=== PATIENT | male | born 1960 | race Caucasian/White ===

== ENCOUNTER 2022-06-07 07:30 | Outpatient (RCR) | payer OTHER, SELFPAY | END 2022-07-12 14:33 | disposition home or self-care (01) | PROVIDERS: PCP Surgery; Visit Provider Surgery | DX: M25.551 Pain in right hip (principal); Z51.89 Encounter for other specified aftercare | CPT/HCPCS: 97110; 97140; 97162 ==

== ENCOUNTER 2024-02-19 15:20 | Emergency (ER) | payer OTHER, SELFPAY ==
[2024-02-19 15:25] VITALS: BP 142/85; PULSE 92; RESP 20; TEMP 36.6; O2SAT 98; BMI 44.1
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
--- OUTSIDE RECORDS SUMMARY | 2024-02-19 16:08 | XMS_ITS | Referral Summary ---
Author Name Unknown Organization [facility] Address [address] [place] [address] Care Team Providers Care Deaf/Hard Of Hearing Specialist Name Role Phone Elsewhere, Pcp Primary Care Provider Unavailabl e Source Comments Patient records contain information from all sites at [facility]. For routine questions regarding patient records, call [phone] during business hours, M-F 8:00 AM - 5:00 PM Central Time. Record requests for emergency care only can be directed to [phone] at any time.[facility] Allergies Active Allergy Reactions Criticality Noted Date Comments Apollo Cespedes (Reselect Reaction) 01/21/2007 rash Medications Medication Sig Dispensed Refills Start Date End Date Status rosuvastatin (CRESTOR) 5 mg tablet Take 5 mg by mouth. 10/26/2022 Active naproxen (NAPROSYN) 500 mg tablet Take 500 mg by mouth every 12 (twelve) hours as needed. 01/02/2023 Active metoprolol tartrate (LOPRESSOR) 25 mg tablet Take 25 mg by mouth 2 (two) times a day. 03/06/2023 Active lisinopriL (PRINIVIL,ZESTRIL) 30 mg tablet Take 15 mg by mouth. 12/28/2022 Active HYDROcodone-acetaminoph en (NORCO) 5-325 mg per tablet Take by mouth every 6 (six) hours as needed. 01/19/2023 Active dilTIAZem CD (CARDIZEM CD/CARTIA XT) 120 mg 24 hr capsule Take 120 mg by mouth. 10/26/2022 Active cranberry fruit (cranberry) 450 mg tablet Take by mouth. 12/19/2022 Active apixaban (ELIQUIS) 5 mg tablet Take 5 mg by mouth. 10/26/2022 Active Social History Tobacco Use Types Packs/Day Years Used Date Smoking Tobacco: Every Day Cigarettes Passive Smoke Exposure: Current Tobacco Cessation:Ready to Q uit: Not Asked; Counseling Given: Not Answered Alcohol Use Standard Drinks/Week Comments Defer 0 (1 standard drink = 0.6 oz pur e alcohol) Nutrition Answer Date Recorded Nutrition: EVOO Fat Source Unknown 12/07 Nutrition: Servings of Fruits/Vegetables per Day Not on file 12/07/2020 Dental Answer Date Recorded Dental: Regular Dentist Unknown 12/08/19 21 Sex and Gender Information Value Date Recorded Sex Assigned at Not on file Gender Identity Not on file Sexual Orientation Not on file Last Filed Vital Signs Vital Sign Reading Time Taken Comments Blood Pressure 167/110 05/04/2023 3:00 PM CDT Pulse 85 05/04/2023 3:05 PM CDT Temperature 36.6 ??C (97.9 ??F) 05/04/2023 3:00 PM CD T Respiratory Rate 22 05/04/2023 3:05 PM CDT Oxygen Saturation 96% 05/04/2023 3:05 PM CDT Inhaled Oxygen Concentration - - Weight 135 kg (297 lb 9.9 oz) 05/04/2023 1:51 PM CDT Height - - Body Mass Index - - Plan of Treatment Not on file Procedures Procedure Name Priority Date/Time Associated Diagnosis Comments EXTI POTASSIUM, S/P Routine 01/02/2023 9 :12 AM CDT EXTI CREATININE WITH EGFR, S/P Routine 12/18/2022 3:38 PM CDT EXTI LIPID PANEL, S Routine 10/26/2022 1 1:20 AM PAGE DESIGNER EXTI BASIC METABOLIC PANEL, S/P Routine 10/26/2022 11:20 AM PAGE DESIGNER from Last 3 Months or Most Recently Relevant to Health Maintenance Care Teams Deaf/Hard Of Hearing Specialist Relationship Specialty Start Date End Date Elsewhere, Pcp PCP - General Internal Medicine 05/04/23
--- OUTSIDE RECORDS SUMMARY | 2024-02-19 16:08 | XMS_ITS | Clinical Summary ---
Author Name Unknown Organization [facility] Address [address] [place] [address] Care Team Providers Care Space Buyer Name Role Phone Elsewhere, Pcp Primary Care Provider Unavailabl e Source Comments Patient records contain information from all sites at [facility]. For routine questions regarding patient records, call [phone] during business hours, M-F 8:00 AM - 5:00 PM Central Time. Record requests for emergency care only can be directed to [phone] at any time.[facility] Allergies Active Allergy Reactions Criticality Noted Date [...] Date Recorded Dental: Regular Dentist Unknown 12/08/19 Sex and Gender Information Value Date Recorded [...] Mass Index - - Plan of Treatment Health Maintenance Due Date Last Done Comments CT Colonography 1960 Cologuard 1960 Colonoscopy 1960 Colorectal Cancer Screening 1960 FIT 1960 HIV Screening 1960 Hepatitis C Screening 1960 Tobacco Cessation counseling 1960 Depression Screening (Annual PHQ-2) 10/08/2023 Sodium Level 10/26/2023 10/26/2022, 12/10/2020, 07/20/2020, Additional history exists Creatinine Level (Kidney Fun ction Test) 12/19/2023 12/18/2022, 10/26/2022, 09/15/2022, Additional history exists Potassium Level 01/03/2024 01/02/2023, 12/06, 12/04/2022, Additional history exists Fasting Glucose for Diabetes Screening 10/26/2025 10/26/2022, 09/27/2021, 07/20/2020, Additional history exists Lipid (Cholesterol) Screening 10/26/2027, 09/27/2021, 07/20/2020, Additional history exists DTaP,Tdap,and Td Vaccines (3 - Td or Tdap) 05/17/2028 05/17/2018, 02/09/2006 Zoster Vaccines Completed 09/19/2018, 05/17/2018 Pneumococcal vaccine (0-64 years) Completed 022, 01/07/2009 COVID-19 Vaccine Completed 08/14/2023, 03/2022, 08/30/2021, Additional history exists Influenza Vaccine Completed 08/14/2023, , 08/30/2021, Additional history exists Procedures Procedure Name Priority Date/Time Associated Diagnosis Comments EXTI POTASSIUM, S/P Routine 01/02/2023 9 :12 AM CDT EXTI CREATININE WITH EGFR, S/P Routine 12/18/2022 3:38 PM CDT EXTI LIPID PANEL, S Routine 10/26/2022 1 1:20 AM FRONT OFFICE DEVELOPER EXTI BASIC METABOLIC PANEL, S/P Routine 10/26/2022 11:20 AM FRONT OFFICE DEVELOPER from Last 3 Months or Most Recently Relevant to Health Maintenance Care Teams Space Buyer Relationship Specialty Start Date End Date Elsewhere, Pcp PCP - General Internal Medicine 05/04/23
--- OUTSIDE RECORDS SUMMARY | 2024-02-19 16:09 | XMS_ITS | Clinical Summary ---
Author Name Unknown Organization [facility] Address [place], [place] [address] Care Team Providers Care Land Examiner Name Role Phone Davian Vargas MD Primary Care Provider [phone] Allergies Active Allergy Reactions Criticality Noted Date Comments Codeine Hives 01/21/2007 Soap Erythema 12/05/2010 ?? Allergy to some types of soap and detergents- Hypoallergenic linens needed Patient unsure that this is an allergy 05/18/23 Medications Medication Sig Dispensed Refills Start Date End Date Status metoprolol tartrate (LOPRESSOR) 25 mg tabletIndications:Per sistent atrial fibrillation (HC) Take 1 Tablet (25 mg) by mouth two times daily. 180 Tablet 12/03/2023 Active Ventolin HFA 90 mcg/actuation inhalerIndications:Ex acerbation of asthma, unspecified asthma severity, unspecified whether persistent INHALE 1 TO 2 PUFFS BY MOUTH EVERY 4 HOURS NEEDED FOR SHORTNESS OF BREATH OR WHEEZING 18 g 1 12/23/2023 Active lisinopriL (PRINIVIL; ZESTRIL) 30 mg tabletIndications:Ess ential hypertension Take 1 Tablet (30 mg) by mouth once daily in the evening. 90 Tablet 3 01/11/2024 Active apixaban (ELIQUIS) 5 mg tabletIndications:Atr ial fibrillation, unspecified type (HC) Take 1 Tablet (5 mg) by mouth two times daily. 60 Tablet 11 01/11/2024 Active dilTIAZem CD (CARDIZEM CD) 120 mg extended release 24 hr capsuleIndications:At rial fibrillation, unspecified type (HC) Take 1 Capsule (120 mg) by mouth once daily. 90 Capsule 3 01/11/2024 Active rosuvastatin (CRESTOR) 10 mg tabletIndications:Mix ed hyperlipidemia Take 1 Tablet (10 mg) by mouth at bedtime. 90 Tablet 3 01/14/2024 Active Active Problems Problem Noted Date Diagnosed Date PVCs (premature ventricular contractions) 2017 Sleep apnea 07/16/2013 Overview: Mild - has never used CPAP Adenomatous colon polyp 01/08/2012 Overview: Colonoscopy 12/2011 polyps repeat in 3 years Colonoscopy 11/2015 polyp repeat in 5 years Colonoscopy 04/2022 large TA, repeat in 3 years Atrial fibrillation 09/20/2010 Overview: Converted after Tikosyn 12/2010 [facility]. Obesity, unspecified 09/08/2010 Unspecified essential hypertension 01/20/2009 Mixed hyperlipidemia 01/20/2009 Coronary artery disease 01/09/2009 Overview: Angiogram 01/12/2009 mild disease Unspecified asthma(493.90) 01/21/2007 Overview: Uses albuterol rarely Resolved Problems Problem Noted Date Diagnosed Date Resolved Date Persistent atrial fibrillation 02/19/2018 10/26/2022 Cholelithiases 10/02/2012 09/27/2021 Overview: Noted incidentally on CT scan; patient not informed. 10/02/2012. Patient advised 12/16/2012 Prediabetes 07/22/2012 10/26/2022 Overview: Referred to CDE. 07/22/2012 detention (current) use of anticoagulants 09/20/2010 07/20/2011 Overview: INR Goal Range: 2.0 - 3.0 Lipoma of other skin and subcutaneous tissue 0 09/27/2021 Overview: Right upper back: 3x4 cm. 05/02/2010 Small L4-5 Herniation with Right Leg Weakness 02/25/20 09 10/26/2022 Overview: Right leg numb, but no pain. 07/22/2012 Atrial fibrillation 01/06/2009 02/29/20 10 Overview: NORMAL SINUS RHYTHM per Holter. Displacement of lumbar inter vertebral disc without myelopathy 03/16/2008 02/24/2009 Thoracic or lumbosacral neur itis or radiculitis, unspecified 03/16/2008 09/27/2021 Encounters Date Type Department Care Team Description 01/24/2024 9:30 AM CDT Orders Only [facility] [address] [place] [address] Lab, [place] [facility] 01/24/2024 Travel 01/22/2024 8:00 AM CDT Office Visit [facility] [address] [address] Aurelia Nobles NP Heart Problem (Persistent atrial fibrillation (HC)); Primary MD (Davian Vargas MD/) 01/22/2024 Travel 01/14/2024 Orders Only [facility] [address] [place] [address] Davian Vargas MD <No scans attached> 01/11/2024 2:25 PM CDT Office Visit [facility] [address] [place] [address] Davian Vargas MD Physical (63 yr old male) 01/11/2024 Travel 01/07/2024 9:00 AM CDT Orders Only [facility] [address] [place] [address] 1 scan: (1-Ord) ECHO TTE COMPLETE WO CONTRAST ([id number]) 01/07/2024 Travel 12/25/2023 7:30 AM CDT Nurse/Clinic Staff Only [facility] 111 [facility] [address] [place] [address] 12/22/2023 Refill [facility] [address] [place] [address] Guy Han MD Refill Request (Ventolin Hfa) 12/20/2023 Refill [facility] [place] [address] [place] [id number] Davian Vargsa MD Refill Request (Lisinopril) 12/03/2023 Refill [facility] [address] [place] [address] Liat Jose MD Refill Request from Last 3 Months Immunizations Name Administration Dates Next Due COVID-19 Vaccine Spikevax (M oderna 50mcg/0.5mL) 12YO+ [id number] Formula PF 08/14/2023 COVID-19 vaccine (Pfizer-Bio NTech 30mcg/0.3mL) 12YO+ ASHLEY-SUCROSE PFMDV 03/13/2022 Influenza, IIV3 (Age >=3 years) 07/16/20 13,07/11/2012,07/20/2011,2009,08/10/2008,07/08/2007 Influenza, IIV4 08/14/2023,,08/30/2021,2019,07/07/2019,07/28/2018,08/08/2016,1 Pneumococcal Conj 20-valent (Prevnar 20) 03/13/2022 Pneumococcal Poly,23-Valent (Pneumovax) 01/07/2009 Td (Age >=7 Years) 05/17/2018 Tdap 02/09/2006 Zoster (Shingrix-RZV, recombinant) 09/19/2018, Family History Medical History Relation Name Comments Heart Disease Brother 1 Joey Higuera had [place] at 40's Heart Disease Brother 2 Carter Cardiac Irregu larity Hypertension Brother 2 Carter Diabetes Father Kalen Heart Disease Father Kalen Hypertension Father Kalen from heart attack, had x 2 heart surgeries Obesity Father Kalen Stroke Father Kalen Heart Disease Mother Yarelis Jasso Hypertension Mother Yarelis Jasso from heart attack at 53 yo, Relation Name Status Comments Brother 1 Joey Higuera (Age 40) [place] Brother 2 Carter Alive Dwarf; [place]. Father Kalen (Age 67) Mother Yarelis Jasso (Age 53) bedri dden: in her sleep Social History Tobacco Use Types Packs/Day Years Used Date Smoking Tobacco: Never Smokeless Tobacco: Never Tobacco Cessation:Counseling Given: Yes Alcohol Use Standard Drinks/Week Comments Yes 0 (1 standard drink = 0.6 oz pur e alcohol) on weekends about a 6 pack PHQ-2 Answer Date Recorded PHQ-2 TOTAL SCORE 0 01/11/2024 Social Connections Answer Date Recorded Frequency of Communication with Friends and Fami ly 0 01/11/2024 Financial Resource Strain Answer Date R ecorded Difficulty of Paying Living Expenses 3 01/11/2024 Difficulty of Paying Living Expenses Not on file 01/11/2024 Food Insecurity Answer Date Recorded Worried About Running Out of Food in the Last Ye ar 1 01/11/2024 Transportation Needs Answer Date Record ed Lack of Transportation (Medical) 1 01/11/2024 Housing Stability Answer Date Recorded Unable to Pay for Housing in the Last Year 1 01/11/2024 Sex and Gender Information Value Date Recorded Sex Assigned at Not on file Gender Identity Not on file Sexual Orientation Not on file Obstetrics History Last Filed Vital Signs Vital Sign Reading Time Taken Comments Blood Pressure 130/84 01/22/2024 8:01 AM CDT Pulse 72 01/22/2024 8:01 AM CDT Temperature 36.6 ??C (97.9 ??F) 07/16/2023 1:28 PM CD T Respiratory Rate 18 07/16/2023 1:28 PM CDT Oxygen Saturation 96% 01/22/2024 8:01 AM CDT Inhaled Oxygen Concentration - - Weight 134.7 kg (297 lb) 01/22/2024 8:01 AM CDT Height 167.6 cm (5' 6) 01/22/2024 8:01 AM CDT Body Mass Index 47.94 01/22/2024 8:01 AM CDT Plan of Treatment Upcoming Encounters Date Type Department Care Team (Late st Contact Info) Description 06/03/2024 8:00 AM CDT Office Visit [facility] [address] [place] [address] [place] [address] Aurelia Nobles NP [address] [place] [address] Health Maintenance Due Date Last Done Comments Influenza for age 50-64 06/08/2024 08/14/20, 06/08/2022, 08/30/2021, Additional history exists Depression screening for age 12+ 01/10/2025 01/11/2024, 11/21/2022, 11/20/2022, Additional history exists BMI (ht and wt on same day) for age 18+ 01/21/2025 01/22/2024, 01/11/2024, 09/25/2023, Additional history exists Colonoscopy through age 75 04/25/202504/25, 04/25/2022, 04/25/2022, Additional history exists Tetanus booster 05/17/2028 05/17/2018, 02/09/2006 Lipids for age 45-75 01/10/2029 01/11/2024, 10/26/2022, 09/27/2021, Additional history exists Tdap Completed 02/09/2006 Hepatitis C screening for ag e 18-79 Completed 05/17/2018 Zoster (shingles) series for age 50+ Completed 09/19/2018, 05/17/2018 Pneumococcal series for age 6-64 Completed 03/13/20, 01/07/2009 HIV for age 15-65 Completed 10/26/2022 COVID-19 vaccine series Completed 08/14/20, 03/13/2022, 08/30/2021, Additional history exists Medical Devices Implanted Type Area Planning Engineer Device Identifier Shelf Expiration Date Model / Serial / Lot [id number] one Matrix 1cc Morehouse Dbf Putty Dbm Implanted:Qty: 1 on 05/21/2023 by Arlene Mccall MBChB at [facility] N/A: Spine Med[employer]onic Spine/Ortho 01/25/2025 [id number] / [id number] / Sarah Spacer Tc 6 Deg Lg 9mm Implanted:Qty: 1 on 05/21/2023 by Arlene Mccall MBChB at [facility] N/A: Spine 11/30/2027 [id number] / / [id number] Description:SARAH SPACER TC 6 DEG LG 9MM Screw Cerv Ant 3.5x17mm Zevo Variable Slf Drilling - [id number] Implanted:Qty: 4 on 05/21/2023 by Arlene Mccall MBChB at [facility] N/A: Spine Medtronic Spine/Ortho [id number] / / Plate Zevo 21mm 1 Lvl Implanted:Qty: 1 on 05/21/2023 by Arlene Mccall MBChB at [facility] N/A: Spine [id number] / / Description:PLATE ZEVO 21MM 1 LVL Procedures Procedure Name Priority Date/Time Associated Diagnosis Comments TSH WITH REFLEX Routine 01/24/2024 9:47 AM CDT Paroxysmal atrial fibrillation (HC) AST (SGOT) Routine 01/24/2024 9:47 AM CDT Paroxysmal atrial fibrillation (HC) ALT (SGPT) Routine 01/24/2024 9:47 AM CDT Paroxysmal atrial fibrillation (HC) HEMOGLOBIN A1C SCREENING Routine 01/11/2024 3:15 PM CDT Prediabetes BASIC METABOLIC PANEL Routine 01/11/2024 3:15 PM CDT Unspecified essential hypertension PSA TOTAL SCREEN Routine 01/11/2024 3:15 PM CDT Screening for prostate cancer LIPID PANEL Routine 01/11/2024 3:15 PM CDT Mixed hyperlipidemia ECHO TTE COMPLETE WO CONTRAST Routine 01/07/2024 10:58 AM CDT Paroxysmal atrial fibrillation (HC) EXTENDED HOLTER Routine 12/25/2023 12:00 AM CDT Paroxysmal atrial fibrillation (HC) LC HIV-1/O/2, 4TH GENERATION Routine 10/26/2022 11:20 AM BUSINESS CONSULT Screening for HIV (human immunodeficiency virus) COLONOSCOPY SCREENING Routine 04/25/2022 7:35 AM CDT History of colon polyps ANTI HCV Routine 05/17/2018 9:04 AM CDT Need for hepatitis C screening test from Last 3 Months or Most Recently Relevant to Health Maintenance Results * TSH WITH REFLEX (01/24/2024 9:47 AM CDT) TSH 1.80 0.27 - 4.20 uIU/mL 01/24/2024 5:41 PM CDT [facility] Blood BLOOD SPECIMEN / Unknown Venipuncture / Unknown 01/24/2024 9:47 AM CDT 01/24/2024 9:49 AM CDT Narrative [facility] - 01/24/2024 5:41 PM CDT In Adults, TSH values between 5.00 and 10.00 uIU/ml do not necessarily indicate the presence of Hypothyroidism. Correlation with clinical findings such as presence of goiter and/or Thyroperoxidase (TPO) Antibody may be helpful. For more information please refer to HARINI 2004; 291: 228-238. Aurelia Nobles NP CHEMISTRY Performing Organization Address City/[facility]/ZIP Co de Phone Number [facility] [address] [place] [address], * ALT (SGPT) (01/24/2024 9:47 AM CDT) ALT (SGPT) 29 10 - 50 IU/L 01/24/2024 5:41 PM CDT [facility] Blood BLOOD SPECIMEN / Unknown Venipuncture / Unknown 01/24/2024 9:47 AM CDT 01/24/2024 9:49 AM CDT Aurelia Nobles DATA BASE ADMINISTRATOR CHEMISTRY [facility] [address] [place] [address], [place] * AST (SGOT) (01/24/2024 9:47 AM CDT) Pathologist [facility] AST (SGOT) 23 10 - 50 IU/L 01/24/2024 5:41 PM CDT [facility] Blood BLOOD SPECIMEN / Unknown Venipuncture / Unknown 01/24/2024 9:47 AM CDT 01/24/2024 9:49 AM CDT Aurelia Nobles NP CHEMISTRY Performing Organization Address [facility] Co de Phone Number [facility] [address] [place] [address], * HEMOGLOBIN A1C SCREENING (01/11/2024 3:15 PM CDT) [facility] HEMOGLOBIN A1C SCREENING 6.0 <=6.4 % 01/11/2024 9:52 PM CDT [facility] Blood BLOOD SPECIMEN / Unknown Venipuncture / Unknown 01/11/2024 3:15 PM CDT 01/11/2024 3:15 PM CDT Narrative [facility] - 01/11/2024 9:52 PM CDT ? (<5.7%) ?Normal ? (5.7% to 6.4%) ? Indicates prediabetes ? (>=6.5%) ? Confirms diabetes Falsely low levels may be seen with: Recent Transfusion, Recent Significant Blood Loss, Hemolytic Diseases, or Falsely elevated levels may be seen with: Untreated Anemias, Splenectomy Davian Vargas MD CHEMISTRY Performing Organization Address [facility] Co de Phone Number [facility] [address] [place] [address], * LIPID PANEL (01/11/2024 3:15 PM CDT) [facility] CHOLESTEROL,TOTAL 171 100 - 199 mg/dL 01/11/2024 10:17 PM CDT [facility] Comment: Cholesterol, Total Reference Ranges Desirable <200 mg/dL Borderline 200-239 mg/dL High >=240 mg/dL TRIGLYCERIDES 140 <150 mg/dL 01/11/2024 10:17 PM CDT [facility] HDL CHOLESTEROL 42 >40 mg/dL 10:17 PM CDT [facility] NON-HDL CHOLESTEROL 129 <145 mg/dl 01/11/2024 10:17 PM CDT [facility] CHOL/HDL RATIO 4.07 <4.50 01/11/2024 10:17 PM CDT [facility] LDL CHOLESTEROL 101 <=130 mg/dL 01/11/2024 10:17 PM CDT [facility] VLDL CHOLESTEROL 28 <=30 mg/dL 01/11/2024 10:17 PM CDT [facility] PROVIDER ORDERED STATUS RANDOM 01/11/2024 10:17 PM CDT [facility] Blood BLOOD SPECIMEN / Unknown Venipuncture / Unknown 01/11/2024 3:15 PM CDT 01/11/2024 3:15 PM CDT Davian Vargas MD CHEMISTRY [facility] [address] [place] [address], * (ABNORMAL) BASIC METABOLIC PANEL (01/11/2024 3:15 PM CDT) SODIUM 139 136 - 145 mmol/L 01/11/2024 10:17 PM CDT [facility] POTASSIUM 4.3 3.5 - 5.1 mmol/L 01/11/2024 10:17 PM CDT [facility] CHLORIDE 103 98 - 107 mmol/L 01/11/2024 10:17 PM CDT [facility] CO2,TOTAL 25 22 - 29 mmol/L 01/11/2024 10:17 PM CDT [facility] ANION GAP 11 5 - 18 01/11/2024 10:17 PM CDT [facility] GLUCOSE 101(H) 70 - 99 mg/dL 01/11/2024 10:17 PM CDT [facility] CALCIUM 8.8 8.8 - 10.2 mg/dL 01/11/2024 10:17 PM CDT [facility] BUN 16 8 - 23 mg/dL 01/11/2024 10:17 PM CDT [facility] CREATININE 0.88 0.70 - 1.20 mg/dL 01/11/2024 10:17 PM CDT [facility] BUN/CREAT RATIO 18 10 - 20 10:17 PM CDT [facility] eGFR >90 >90 mL/min/1.7 3m2 01/11/2024 10:17 PM CDT [facility] Comment:As of 2021, eG FR is calculated by the CKD-EPI creatinine equation without race adjustment. ??eGFR can be influenced by muscle mass, exercise, and diet. ??The reported eGFR is an estimation only and is only applicable if the renal function is stable. Blood BLOOD SPECIMEN / Unknown Venipuncture / Unknown 01/11/2024 3:15 PM CDT 01/11/2024 3:15 PM CDT Davian Vargas MD CHEMISTRY [facility] [address] [place] [address], * PSA TOTAL SCREEN (01/11/2024 3:15 PM CDT) PSA TOTAL (SCREEN) 0.92 <4.00 ng/mL 01/11/2024 10:17 PM CDT [facility] Blood BLOOD SPECIMEN / Unknown Venipuncture / Unknown 01/11/2024 3:15 PM CDT 01/11/2024 3:15 PM CDT Narrative [facility] - 01/11/2024 10:17 PM CDT The test method changed on 04/03/2023. If this test has been used for serial monitoring, rebaselining is recommended. Rebaselining consists of 2 measurements, collected 3-6 weeks apart. The [employer] Elecsys total PSA assay is an electrochemiluminescence immunoassay ECLIA performed on the [employer] Thang e immunoassay analyzers. Values obtained with different assay methods may be different and cannot be used interchangeably. Davian Vargas MD LABORATORY [facility] [address] [place] [address], * ECHO TTE COMPLETE WO CONTRAST (01/07/2024 10:58 AM CDT) AORTIC VALVE MEAN PG 3 mmHg PEAK TR VELOCITY 1.6 m/s LVEDD 5.3 cm EJECTION FRACTION 50 - 55% Anatomical Region Laterality Modality Ultrasound 01/07/2024 9:09 AM CDT Narrative 01/07/2024 11:48 AM CDT ECHOCARDIOGRAM FLACO FERNANDO ? Accession#: ?? [id number] : ?1960 63 years Study Date: ?? 01/07/2024 9:09:45 AM Gender: M ?BP: ? 112/68 mmHg Height: 170.00 cm ?BSA: ?2.37 m? ? ? Weight: 132.00 kg ?Tech: ? MBW ? Referring MD: LIAT JOSE Site: ? [facility] Reading Location: Mobile-OP Patient Location: Outpatient. Procedure: 2D, Color Doppler and Spectral Doppler. Indication for study: Paroxysmal A fib Cardiac Rhythm: Atrial fibrillation.Study quality: Technically limited. Final Impressions: 1. Technically limited exam. 2. Atrial fibrillation : rates in 60's. 3. Normal LV size, borderline wall thickness, low normal global systolic function with an estimated EF of 50 - 55%. 4. Severely enlarged left atrium. 5. Right ventricular cavity size is normal, global systolic RV function is borderline reduced. 6. 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 Chamber Sizes and Function Normal left ventricular size, borderline wall thickness, low normal global systolic function with an estimated EF of 50 - 55%. Left atrial size is severely enlarged. Right ventricular cavity size is normal, global systolic RV function is borderline reduced. The right atrium is severely enlarged. Right atrial area is 21 cm? ? ?. The pulmonary artery is not well visualized. The sinus of Valsalva is dilated. The ascending aorta is normal sized. Valves, RV Pressures and Diastolic Function The aortic valve is normal in structure and trileaflet, no stenosis and no regurgitation. The mitral valve is normal in structure, trace mitral regurgitation. Mitral annular calcification is present. Indeterminate pattern of LV diastolic filling. The tricuspid valve is normal in structure. Tricuspid regurgitation is mild regurgitation. The tricuspid regurgitant velocity is 1.6 m/s, the estimated right ventricular systolic pressure is 10 mmHg plus right atrial pressure. The pulmonic valve is not well visualized. Trace pulmonary regurgitation. Masses, Effusion, Shunts There is no pericardial effusion. The inferior vena cava is normal sized, respiratory size variation greater than 50%. No left to right shunting was detected by limited color flow Doppler interrogation of the interatrial septum. MEASUREMENTS AND CALCULATIONS 2-D Measurements and LV Function: LVID (d) 5.3 cm LV FS% (2D) ?? 26 % LVID (s) 3.9 cm LVOT diameter 2.4 cm IVS (d) ??1.2 cm HR ?68 bpm LVPW (d) 0.8 cm LA Vol index ??38 ml/m2 Ao Sinus 4.0 cm RA area ? 21 cm? ? ? Asc Ao ?? 3.3 cm RV Max 4C (d) 3.9 cm LA ? 5.4 cm Diastology: Mitral ?Tissue Doppler E Peak 0.9 m/s ??e', Septum ? 0.10 m/s DT ? 145 msec e', Lateral ?0.10 m/s ?E/e' Average ?? 8.99 Aortic Valve: Vmax ? 1.2 m/s ??CUAUHTEMOC (V) ?? 3.11 cm? ? ? VTI ?0.24 m ?? CUAUHTEMOC (I) ?? 2.81 cm? ? ? LVOT V max ? 0.9 m/s ??Max PG ?6 mmHg LVOT VTI ? 0.15 m ?? Mean PG ?? 3 mmHg SV ? 66 ml ?Dim Index 0.64 SV index ? 28 ml/m? ? ? CO ?4.5 l/min AV Ejection Time 0.26 sec CI ?1.9 l/min/m? ? ? AV Flow Rate ? 251 ml/s Mitral Valve: MVA ? 5.2 cm? ? ? MV P 1/2 ??42 msec MV Mean G 1 mmHg MV VTI ?0.26 m Tricuspid Valve and estimated PA pressures: TR Vmax 1.6 m/s TAPSE 1.6 cm TR maxG 10 mmHg . This study was interpreted by an [facility] accredited facility. CC: Davian Vargas. ??Final ?? Procedure Note Alondra Khan MD - 01/07/2024 ECHOCARDIOGRAM FLACO FERNANDO : 1960 63 years Study Date: 01/07/2024 9:09:45 AM Gender: M BP: 112/68 mmHg Height: 170.00 cm BSA: 2.37 m? ? ? Weight: 132.00 kg Tech: DELON Referring MD: LIAT JOSE Site: [facility] Reading Location: Mobile-OP Patient Location: Outpatient. Procedure: 2D, Color Doppler and Spectral Doppler. Indication for study: Paroxysmal A fib Cardiac Rhythm: Atrial fibrillation.Study quality: Technically limited. Final Impressions: 1. Technically limited exam. 2. Atrial fibrillation : rates in 60's. 3. Normal LV size, borderline wall thickness, low normal global systolicfunction with an estimated EF of 50 - 55%. 4. Severely enlarged left atrium. 5. Right ventricular cavity size is normal, global systolic RV functionis borderline reduced. 6. 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 Chamber Sizes and Function Normal left ventricular size, borderline wall thickness, low normal globalsystolic function with an estimated EF of 50 - 55%. Left atrial size isseverely enlarged. Right ventricular cavity size is normal, globalsystolic RV function is borderline reduced. The right atrium is severelyenlarged. Right atrial area is 21 cm? ? ?. The pulmonary artery is not wellvisualized. The sinus of Valsalva is dilated. The ascending aorta isnormal sized. Valves, RV Pressures and Diastolic Function The aortic valve is normal in structure and trileaflet, no stenosis and noregurgitation. The mitral valve is normal in structure, trace mitralregurgitation. Mitral annular calcification is present. Indeterminatepattern of LV diastolic filling. The tricuspid valve is normal instructure. Tricuspid regurgitation is mild regurgitation. The tricuspidregurgitant velocity is 1.6 m/s, the estimated right ventricular systolicpressure is 10 mmHg plus right atrial pressure. The pulmonic valve is notwell visualized. Trace pulmonary regurgitation. Masses, Effusion, Shunts There is no pericardial effusion. The inferior vena cava is normal sized,respiratory size variation greater than 50%. No left to right shunting wasdetected by limited color flow Doppler interrogation of the interatrialseptum. MEASUREMENTS AND CALCULATIONS 2-D Measurements and LV Function: LVID (d) 5.3 cm LV FS% (2D) 26 % LVID (s) 3.9 cm LVOT diameter 2.4 cm IVS (d) 1.2 cm HR 68 bpm LVPW (d) 0.8 cm LA Vol index 38 ml/m2 Ao Sinus 4.0 cm RA area 21 cm? ? ? Asc Ao 3.3 cm RV Max 4C (d) 3.9 cm LA 5.4 cm Diastology: Mitral Tissue Doppler E Peak 0.9 m/s e', Septum 0.10 m/s DT 145 msec e', Lateral 0.10 m/s E/e' Average 8.99 Aortic Valve: Vmax 1.2 m/s CUAUHTEMOC (V) 3.11 cm? ? ? VTI 0.24 m CUAUHTEMOC (I) 2.81 cm? ? ? LVOT V max 0.9 m/s Max PG 6 mmHg LVOT VTI 0.15 m Mean PG 3 mmHg SV 66 ml Dim Index 0.64 SV index 28 ml/m? ? ? CO 4.5 l/min AV Ejection Time 0.26 sec CI 1.9 l/min/m? ? ? AV Flow Rate 251 ml/s Mitral Valve: MVA 5.2 cm? ? ? MV P 1/2 42 msec MV Mean G 1 mmHg MV VTI 0.26 m Tricuspid Valve and estimated PA pressures: TR Vmax 1.6 m/s TAPSE 1.6 cm TR maxG 10 mmHg . This study was interpreted by an [facility] accredited facility. CC: Davian Vargas. Final Liat Jose MD ECHO ORD * ZIO PATCH XT - weekly to monthly symptoms. (12/25/2023 12:00 AM CDT) Liat Jose MD CARDIAC SERVICES ORD * LC HIV-1/O/2, 4TH GENERATION (10/26/2022 11:20 AM BUSINESS CONSULT) HIV Scr 4th Gen Non Reactive Non Reactive 10/28/2022 1:10 PM BUSINESS CONSULT [facility] ([facility]) Comment: HIV Negative HIV-1/HIV-2 antibodies and HIV-1 p24 antigen were NOT detected. There is no laboratory evidence of HIV infection. Blood BLOOD SPECIMEN / Unknown Venipuncture / Unknown 10/26/2022 11:20 AM BUSINESS CONSULT 10/26/2022 11:22 AM BUSINESS CONSULT Narrative [facility] ([facility]) - 10/28/2022 1:10 PM BUSINESS CONSULT Performed at: ??01 - [facility] [place], [place], [place] ??[id number] Cathode Ray Tube Assembler: Christiano Bowers MD, Phone: ??[phone] Davian Vargas MD LABORATORY [facility] (CET) [facility] [place] [address], * COLONOSCOPY (04/25/2022 7:45 AM CDT) 04/25/2022 7:45 AM CDT Narrative Transcriptions Shaan Quintero MD - 04/25/2022 8:59 AM CDT Patient Name: Flaco Fernando Procedure Date: 04/25/2022 Gender: Male Date of : 1960 Admit Type: Outpatient Procedure: Colonoscopy Proceduralist: Shaan Quintero MD , Roxie Woodall RN(Nurse) Referring MD: Davian Vargas Indications/Pre-Op Diagnosis: High risk colon cancer surveillance:Personal history of multiple (3 or more) adenomas,Last colonoscopy: December 2015 Medications: Fentanyl 100 micrograms IV, Midazolam 4 mgIV, The level of sedation administered wasmoderate Procedure Description: The patient had risks, benefits and alternatives explained to andgave informed consent. The patient had a stable cardiopulmonary status and judged an adequate candidate for conscious sedation. The Colonoscope was passed through the anus and advanced to thececum, identified by appendiceal orifice and ileocecal valve. Thecolonoscopy was performed without difficulty. The patient tolerated the procedure well. The quality of the bowel preparation was good. The ileocecal valve, appendiceal orifice, and rectum were photographed. Complications: No immediate complications. Estimated Blood Loss & Specimen: Estimated blood loss: none. Specimen collected - Yes and sent to Laboratory Findings: The perianal and digital rectal examinations were normal. A 3 mm polyp was found in the ascending colon. The polyp was sessile. The polyp was removed with a cold snare. Resection and retrieval were complete. A 25 mm polyp was found in the sigmoid colon at 45-40 cm. The polypwas pedunculated. The polyp was removed with a hot snare. Resection and retrieval were complete. To prevent bleeding after the polypectomy,one hemostatic clip was successfully placed (MR conditional). Clip pss delivery professional: [employer]. There was no bleeding during, or atthe end, of the procedure. Multiple small and large-mouthed diverticula were found in thesigmoid colon and descending colon. There was narrowing of the colon in association with the diverticular opening. The colon (entire examined portion) was mildly redundant. The exam was otherwise without abnormality on direct and retroflexion views. Impressions/Post-Op Diagnosis: - One 3 mm polyp in the ascending colon, removed with a cold snare. Resected and retrieved. - One 25 mm polyp in the sigmoid colon, removed with a hot snare. Resected and retrieved. Clip (MR conditional) was placed. Clip pss delivery professional: Massillon Avansera. - Moderate diverticulosis in the sigmoid colon and in the descending colon. There was narrowing of the colon in association with the diverticular opening. - Redundant colon. - The examination was otherwise normal on direct and retroflexionviews. Recommendation: - Patient has a contact number available for emergencies. The signsand symptoms of potential delayed complications were discussed with the patient. Return to normal activities tomorrow. Written discharge instructions were provided to the patient. - Resume previous diet. - Continue present medications. - Await pathology results. - Repeat colonoscopy in 3 years for surveillance. - Avoid heavy lifting greater than 30 lbs., asprin/ nonsteroidal medicines, exercise and strenuous activity for 2 weeks. Moderate Sedation: Moderate (conscious) sedation was administered by the endoscopy nurse and supervised by the endoscopist. The following parameters were monitored: oxygen saturation, heart rate, respiratory rate, blood pressure, adequacy of pulmonary ventilation and reponse to care. Please refer to the patient's medical record flowsheets and nursing notes for moderate sedation details. Total physician intraservice time was 46 minutes. Shaan Quintero MD 04/25/2022 8:59:06 AM This report has been signed electronically. Note Initiated On: 04/25/2022 7:45 AM Procedure Code(s): --- Professional --- 91243, Colonoscopy, flexible; with removalof tumor(s), polyp(s), or other lesion(s) bysnare technique Diagnosis Code(s): --- Professional --- Z86.010, Personal history of colonicpolyps D12.2, Benign neoplasm of ascending colon D12.5, Benign neoplasm of sigmoid colon K57.30, Diverticulosis of large intestine without perforation or abscess withoutbleeding Q43.8, Other specified congenitalmalformations of intestine CPT copyright 2020 [employer]. All rights reserved. The codes documented in this report are preliminary and upon reinsurance claims analyst reviewmay be revised to meet current compliance requirements. Scope In: 8:07:16 AM Scope Withdrawal Time 0 hours 30 minutes 44 seconds Scope Out: 8:49:20 AM Shaan Quintero MD PROCEDURE ORD * ANTI HCV [59656.2] (05/17/2018 9:04 AM CDT) HEPATITIS C ANTIBODY Non-React ezio Non-React ezio 05/17/2018 1:58 PM CDT [facility] Comment:Antibodies to HCV no t detected; does not exclude the possibility of exposure to HCV. Blood BLOOD SPECIMEN / Unknown Venipuncture / Unknown 05/17/2018 9:04 AM CDT 05/17/2018 9:04 AM CDT Davian Vargas MD SEND OUTS [facility] [address] [place] [address], from Last 3 Months or Most Recently Relevant to Health Maintenance Advance Directives * Full Code (Latest Code Status on File) Date Activated Date Inactivated Comments 05/21/2023 11:52 AM 05/22/2023 3:07 PM Question Answer Comments Code Status Discussion: Unable to Assess Preferences, Provider to review later * Full Code Date Activated Date Inactivated Comments 01/19/2023 6:12 AM 01/19/2023 12:09 PM Question Answer Comments Code Status Discussion: Not Discussed * Full Code Date Activated Date Inactivated Comments 12/04/2022 8:50 AM 12/04/2022 9:09 PM Question Answer Comments Code Status Discussion: Reviewed Preferences * Full Code Date Activated Date Inactivated Comments 11/20/2022 7:51 AM 11/20/2022 12:07 PM Question Answer Comments Code Status Discussion: Other * Full Code Date Activated Date Inactivated Comments 12/12/2010 10:44 AM 12/15/2010 6:35 PM Care Teams Land Examiner Relationship Specialty Start Date End Date Davian Vargas MD [address] [place] [address] PCP - General Family Practice 07/16/13
--- OUTSIDE RECORDS SUMMARY | 2024-02-19 16:09 | XMS_ITS ---
Author Name Unknown Organization [facility] Address [address] [place] [address] Care Team Providers Care Patient Care Manager Name Role Phone Unavailable Unavailable Unavailable Surgery Details Not on file Complications Check Surgery Details section. Procedure Estimated Blood Loss Check Surgery Details section. Procedure Findings Check Surgery Details section. Procedure Specimens Taken Check Surgery Details section.
--- OUTSIDE RECORDS SUMMARY | 2024-02-19 16:09 | XMS_ITS | Data Portability ---
Author Name Unknown Address [address] [place] [address] Phone [phone] Organization [facility] Address [address] [place] [address] Care Team Providers Care Bindery Cutter Operator Name Role Phone KAYKAY GUDELIA Primary Care Provider [phone] Assessment No assessment recorded. Plan of Treatment Reminders Order Date Submit Date Provider Last Modified By Organization Details Last Modified Time Details Appointments None recorded. Lab urinalysis, dipstick 2022 023 sonia [facility], [address], [place], [address], 3 15:03:49 Referral None recorded. Procedures None recorded. Surgeries extra corporeal shock wave lithotripsy (SURG) 2022 023 [email or web address] Not available 3 09:53:17 Imaging XR, kidney + ureter + bladder 2022 024 [facility] , [address], [place], [address], 4 03:02:32 Medication Orders None recorded. Patient TargetsNo targets recorded. Patient InstructionsNo instructions recorded. Reason for Referral None Reported. Results Created Date Observation Date Name Description Value Unit Range Abnormal Flag LastModifiedBy Organization Detail LastModifiedTime 12/22/19 23 12/21/2022 urina lysis , dipst ick pH-Status 5.5 Not Available [facility] [address], [place], [address], 12/21/2022 15:03:22 12/22/19 23 12/21/2022 urina lysis , dipst ick Blood-Status Small Not Available [facility] [address], [place], [address], 12/21/2022 15:03:22 12/20/19 23 11/21/2022 CT, urogr am No observ ation record ed. [email or web address] Not Available 12/19/2022 15:22:51 12/22/19 23 12/21/2022 XR, kidne y + urete r + bladd er EXAM: XR, KIDNEY + URETER + BLADDE R LOCATI ON: [facility] DATE/T VERN: 2022, 2:30 PM INDICA TION: Calcul us of kidney . COMPAR ATTILA: None. IMPRES LAMONTE: 9 mm stone projec ting within the inferi or left kidney . No defini te right- sided stones . No defini te distal ureter al stones or bladde r stones . Nonobs tructe d bowel gas patter n. This report was electr onical ly interp reted by: Guy bartlett MD on 2022 at 16:28 [facility] [address], [place], [address], 12/25/2022 18:04:54 02/09/20 23 02/07/2023 XR, kidne y + urete r + bladd er No observ ation record ed. [email or web address] [facility] [address] [facility] [address], [place], [address], 02/08/2023 09:04:47 Result Notes Documentation Provider Name and Address Organization Details Recorded Time Xr, Kidney + Ureter + Bladder : EXAM: XR, KIDNEY + URETER + BLADDER LOCATION: [facility] DATE/TIME: 12/21/2022, 2:30 PM INDICATION: Calculus of kidney. COMPARISON: None. IMPRESSION: 9 mm stone projecting within the inferior left kidney. No definite right-sided stones. No definite distal ureteral stones or bladder stones. Nonobstructed bowel gas pattern. This report was electronically interpreted by: Guy French MD on 12/21/2022 at 16:28 Abhinav Hammond MD [address] [place] [address],[address], [address], [facility] 12/25/2022 18:04:54 Problems Name Status Onset Date Resolution Date Notes Provider Name and Address Organization Details Recorded Time Microscopic hematuria Active 12/22/19 23 Abhinav Hammond MD [address] [place] [address],[address], [address], [facility] 12/21/2022 16:07:08 Kidney stone Active 12/22/19 23 Abhinav Hammond MD [address] [place] [address],[address], [address], [facility] 12/21/2022 16:09:47 Problem Notes None recorded. Procedures Surgical History None recorded. Imaging Results Imaging Date Name Status LastModified by Organiz ation Details LastModified Time 11/21/2022 CT, urogram completed [email or web address] Information n ot available 12/19/2022 15:22:51 12/21/2022 XR, kidney + ureter + bladder completed [facility] [address] [place], [address], 12/25/2022 18:04:54 02/07/2023 XR, kidney + [facility]ter [email or web address] [address] [facility] [address] [place], [address], 02/08/2023 09:04:47 Procedure Notes None recorded. Medical Equipment None Reported. Allergies No known drug allergies Medications Name Sig Start Date Stop Date Status Note LastModified by Organization Details LastModified Time hydrocodone 5 mg-acetamino phen 325 mg tablet 02/07 completed Not Available Not Available Not Available naproxen 250 mg tablet TAKE 1 TABLET BY MOUTH TWICE DAILY WITH MEALS FOR 28 DAYS 02/07 completed Not Available Not Available Not Available tamsulosin 0.4 mg capsule 2022 active Not Available Not Available Not Avai lable simvastatin 20 mg tablet 12/21 completed Not Available Not Available Not Available lisinopril 30 mg tablet TAKE 1 TABLET BY MOUTH EVERY EVENING active Not Available Not Available No t Available diltiazem CD 120 mg capsule,exte nded release 24 hr active Not Available Not Available Not Available dofetilide 500 mcg capsule active Not Available Not Available Not Available naproxen 500 mg tablet 12/21 completed Not Available Not Available Not Available rosuvastatin 5 mg tablet active Not Available Not Available Not Available metoprolol tartrate 25 mg tablet 12/21 completed Not Available Not Available Not Available peg 3350-electro lytes 236 gram-22.74 gram-6.74 gram-5.86 gram solution 12/21 completed Not Available Not Available Not Available Eliquis 5 mg tablet active Not Available Not Available Not Available Vitals Date Recorded Body weight Body mass index (BMI) Body height Provider Name and Address Organization Details Last Updated DateTime 12/21/2022 296879.79 g 42.8 kg/m2 175.26 cm Alicja Ayala [facility] 12/21/2022 14:57:25 Date Recorded Body height Body mass index (BMI) Body weight Provider Name and Address Organization Details Last Updated DateTime 02/07/2023 175.26 cm 42.8 kg/m2 696194.79 g Gina Childress [facility] 02/07/2023 10:47:27 Social History Question Answer Notes LastModified by Organizat ion Details LastModified Time Tobacco Smoking Status Never Smoker Alicja bailey [facility] 12/21/2022 14:58:28 What Is Your Level Of Alcohol Consumption? Moderate Information not available 12/21/2022 What Is Your Level Of Caffeine Consumption? None Information not available 02/07/2023 What Was The Date Of Your Most Recent Tobacco Screening? 02/07/2023 sonia Information not available 02/07/2023 Sex: Male Functional Status None recorded. Mental Status None recorded. Family History Nothing Reported. Medical History Condition Response Sexually Transmitted Infection N Diabetes N Other N Bleeding Disorder N High Blood Pressure Y Kidney Stones Y High Cholesterol Y GERD/Acid Reflux N Heart Disease N Cancer N Depression N Lung Disease N Immunizations Vaccine Type Date Status Provider Name and Address Organization Details Recorded Time zoster recombinant 05/17/2018 completed Maeve bailey [facility] 08/29/2023 11:08:13 [facility] 11:08:13 COVID-19, mRNA, LNP-S, PF, 100 mcg/0.5mL dose or 50 mcg/0.25mL dose 12/22/2020 completed Maeve bailey [facility] 08/29/2023 11:08:13 COVID-19, mRNA, LNP-S, PF, 100 mcg/0.5mL dose or 50 mcg/0.25mL dose 01/20/2021 [facility] 11:08:13 COVID-19, mRNA, LNP-S, PF, 100 mcg/0.5mL dose or 50 mcg/0.25mL dose 08/30/2021 [facility] 11:08:13 Pneumococcal conjugate PCV20, polysaccharide [id number] conjugate, adjuvant, PF 03/13/2022 [facility] 11:08:13 COVID-19, mRNA, LNP-S, PF, 30 mcg/0.3 mL dose, yves-sucrose 03/13/2022 [facility] 11:08:13 Tdap 02/09/2006 [facility] 11:08:13 Influenza, seasonal, injectable 07/11/2012 [facility] 11:08:13 Influenza, seasonal, injectable 07/16/2013 [facility] 11:08:13 Influenza, seasonal, injectable 09/08/2010 [facility] 11:08:13 Influenza, seasonal, injectable, preservative free 07/20/2011 completed Maeve bailey [facility] 08/29/2023 11:08:13 Td (adult), 2 Lf tetanus toxoid, preservative free, adsorbed 05/17/2018 completed Maeve bailey [facility] 08/29/2023 11:08:13 influenza, injectable, quadrivalent, preservative free 06/08/2022 completed Maeve bailey [facility] 08/29/2023 11:08:13 influenza, injectable, quadrivalent, preservative free 07/07/2019 completed Maeve bailey [facility] 08/29/2023 11:08:13 influenza, injectable, quadrivalent, preservative free 07/20/2020 completed Maeve bailey [facility] 08/29/2023 11:08:13 influenza, injectable, quadrivalent, preservative free 07/28/2018 completed Maeve bailey [facility] 08/29/2023 11:08:13 influenza, injectable, quadrivalent, preservative free 08/06/2014 completed Maeve bailey [facility] 08/29/2023 11:08:13 influenza, injectable, quadrivalent, preservative free 08/08/2016 completed Maeve bailey [facility] 08/29/2023 11:08:13 influenza, injectable, quadrivalent, preservative free 08/30/2021 completed Maeve bailey [facility] 08/29/2023 11:08:13 Past Encounters Encounter ID Performer Location Encounter Start Date Encounter Closed Date Diagnosis/Indication Diagnosis SNOMED-CT Code [id number] Abhinav Hammond MD [facility] [address]]. [place] [id number] 12/21/2022 14:15:16 12/25/2022 09:35:12 Kidney stone 10396260 Microscopic hematuria 19 [id number] Abhinav Hammond MD [facility] [address] [place] [id number] 02/07/2023 10:44:42 02/12/2023 17:45:26 Kidney stone 94810275 Microscopic hematuria 19 6473244 Health Concerns Section Related Observation LastModified by Organization Detai ls LastModified Time None Recorded Concern Status LastModified by Organization Details LastModified Time None Recorded Advance Directives Directive None Recorded Payers Encounter Date Sequence Insurance Name Policy Number Policy Tovar Covered Member ID Tovar Member ID Guarantor Name 02/07/2023 1 [facility] - OPEN ACCESS CHOICE (HMO) [id number] Flaco Taylor [id number] Flaco Randharry 12/21/2022 1 [facility] (H[facility]) [id number] Flaco Taylor [id number] Flaco Baltazar Stephenrick Notes Date Note Type Note Provider Name and Address Organization Details Recorded Time 12/21/2022 text/html HPI Notes: New patient referred for microscopic hematuria and kidney stone. 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 He has no hematuria or any bothersome urinary symptoms. He does take Eliquis for atrial fibrillation. I reviewed the CT urogram images and report from [facility] dated 11/21/2022. This shows nonobstructing 7 mm left lower pole renal stone. No masses, hydronephrosis or filling defects. Abhinav Hammond MD [address], [address], [facility] 12/21/2022 16:11:19 02/07/2023 text/html HPI Notes: : New patient referred for microscopic hematuria and kidney stone. 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 He has no hematuria or any bothersome urinary symptoms. He does take Eliquis for atrial fibrillation. I reviewed the CT urogram images and report from [facility] dated 11/21/2022. This shows nonobstructing 7 mm left lower pole renal stone. No masses, hydronephrosis or filling defects. 02/07/23: He underwent diagnostic cystoscopy and left ESWL on 01/19/2023. Bladder was clear of any pathology. KUB today shows excellent fragmentation of what was a 7 mm left lower pole renal stone, with no residual fragments visible today. Abhinav Hammond MD [address], [place], [address], [facility] 02/07/2023 12:08:01
== END 2024-02-19 17:07 | disposition home or self-care (01) ==
PROVIDERS: Emergency Provider Family Medicine; PCP Surgery
DX: S60.811A Abrasion of right wrist, initial encounter (principal); W30.89XA Contact with other specified agricultural machinery, initial encounter; S16.1XXA Strain of muscle, fascia and tendon at neck level, initial encounter; Y99.0 Civilian activity done for income or pay
CPT/HCPCS: 72125; 99283; 99284

== ENCOUNTER 2024-12-26 14:50 | Emergency (ER) | payer OTHER, SELFPAY ==
--- OUTSIDE RECORDS SUMMARY | 2024-12-26 14:52 | XMS_ITS | Clinical Summary ---
Author Organization [email or web address] [facility] Address [address] [place] [address] Care Team Providers Care Master Ocean Name Role Phone Davian Vargas MD Primary Care Provider [phone] Allergies Active Allergy Reactions Criticality Noted Date Comments Codeine Hives 01/21/2007 Soap Erythema 12/05/2010 ?? Allergy to some types of soap and detergents- Hypoallergenic linens needed Patient unsure that this is an allergy 05/18/23 Medications Ventolin HFA 90 mcg/actuation inhalerIndications :Exacerbation of asthma, unspecified asthma severity, unspecified whether persistent (HC) INHALE 1 TO 2 PUFFS BY MOUTH EVERY 4 HOURS NEEDED FOR SHORTNESS OF BREATH OR WHEEZING 18 g 1 12/23/19 24 Active rosuvastatin (CRESTOR) 10 mg tabletIndications: Mixed hyperlipidemia Take 1 Tablet (10 mg) by mouth at bedtime. 90 Tablet 3 01/14/20 24 Active Eliquis 5 mg tabletIndications: Atrial fibrillation, unspecified type (HC) TAKE 1 TABLET(5 MG) BY MOUTH TWICE DAILY 60 Tablet 11 06/10/20 24 Active lisinopriL (PRINIVIL; ZESTRIL) 40 mg tabletIndications: Essential hypertension Take 1 Tablet (40 mg) by mouth once daily in the evening. 90 Tablet 3 07/29/20 24 Active dilTIAZem CD (CARDIZEM CD) 120 mg extended release 24 hr capsuleIndications :Atrial fibrillation, unspecified type (HC) Take 1 Capsule (120 mg) by mouth once daily. 90 Capsule 10/08/19 25 Active hydroCHLOROthiazid e 25 mg tabletIndications: Essential hypertension Take 1 Tablet (25 mg) by mouth once daily. 90 Tablet 3 11/28/19 25 Active furosemide (LASIX) 20 mg tabletIndications: Essential hypertension,Bilat eral lower extremity edema Take 1 Tablet (20 mg) by mouth once daily in the morning. 30 Tablet 4 08/10/20 24 025 Discontin ued(*Med ineffecti ve) Active Problems Problem Noted Date Diagnosed Date PVCs (premature ventricular contractions) 2017 Sleep apnea 07/16/2013 Overview (08/06/2014): Mild - has never used CPAP Adenomatous colon polyp 01/08/2012 Overview (04/26/2022): Colonoscopy 12/2011 polyps repeat in 3 years Colonoscopy 11/2015 polyp repeat in 5 years Colonoscopy 04/2022 large TA, repeat in 3 years Atrial fibrillation 09/20/2010 Overview (12/26/2010): Converted after Mayra 12/2010 [facility]. Obesity, unspecified 09/08/2010 Unspecified essential hypertension 01/20/2009 Mixed hyperlipidemia 01/20/2009 Coronary artery disease 01/09/2009 Overview (03/25/2009): Angiogram 01/12/2009 mild disease Unspecified asthma(493.90) 01/21/2007 Overview (10/26/2022): Uses albuterol rarely Resolved Problems Problem Noted Date Diagnosed Date Resolved Date Persistent atrial fibrillation 02/19/2018 10/26/2022 Cholelithiases 10/02/2012 09/27/2021 Overview (12/16/2012): Noted incidentally on CT scan; patient not informed. 10/02/2012. Patient advised 12/16/2012 Prediabetes 07/22/2012 10/26/2022 Overview (07/22/2012): Referred to CDE. 07/22/2012 salvage determiner (current) use of anticoagulants 09/20/2010 07/20/2011 Overview (10/03/2010): INR Goal Range: 2.0 - 3.0 Lipoma of other skin and subcutaneous tissue 0 09/27/2021 Overview (05/02/2010): Right upper back: 3x4 cm. 05/02/2010 Small L4-5 Herniation with Right Leg Weakness 02/25/20 09 10/26/2022 Overview (07/22/2012): Right leg numb, but no pain. 07/22/2012 Atrial fibrillation 01/06/2009 02/29/20 10 Overview (02/28/2010): NORMAL SINUS RHYTHM per Holter. Displacement of lumbar inter vertebral disc without myelopathy 03/16/2008 02/24/2009 Thoracic or lumbosacral neur itis or radiculitis, unspecified 03/16/2008 09/27/2021 Encounters Date Type Department Care Team Description 12/26/[address] [place] [address] Davian Vargas MD Refill Request (Rosuvastatin) 12/05/2024 10:30 AM ASSISTANT FOOD SERVICE DIRECTOR Ancillary Procedure [address] [place] [address] 12/05/2024 9:45 AM ASSISTANT FOOD SERVICE DIRECTOR Ancillary Procedure [address] [address] 12/05/2024 Travel 11/30/2024 Travel 11/28/2024 11:20 AM ASSISTANT FOOD SERVICE DIRECTOR Office Visit [address] [place] [address] Davian Vargas MD Shoulder Pain/problem (Right shoulder pain has been on going/No injury); Knee Pain/problem (Fluid in knee has an ultra sound scheduled); Medication Management 11/28/2024 Travel 11/25/2024 7:00 AM ASSISTANT FOOD SERVICE DIRECTOR Office Visit [address] [place] [address] Guy Han MD Musculoskeletal Problem (Consultation for LEFT Knee Pain x 2 months) 11/24/2024 Travel 11/20/[address] [address] Charlie Dennison MD Consult (With Dr Dennison) 11/19/2024 8:15 AM ASSISTANT FOOD SERVICE DIRECTOR Ancillary Procedure [address] [address] 11/19/2024 7:30 AM ASSISTANT FOOD SERVICE DIRECTOR Office Visit [address] [address] Ace Stubbs MD Knee Pain/problem (Swollen Left Knee. X 2 Weeks. No Known Injury ) 11/19/2024 Travel 10/15/2024 [place] [facility] [place] [address] [facility] [address] [place] [address] All Jose MD Results 10/04/[address] [address] Davian Vargas MD Refill Request (Diltiazem Cd) 09/29/[address] [address] Davian Vargas MD Refill Request (Rosuvastatin) from Last 3 Months Immunizations Immunization Administration Dates Next Due COVID-19 VACCINE SPIKEVAX (M ODERNA 50MCG/0.5ML) 12YO+ PFS 08/14/2023 COVID-19 vaccine (Pfizer-Bio NTech 30mcg/0.3mL) 12YO+ ASHLEY-SUCROSE PF MDV 03/13/2022 Influenza, IIV3 (Age >=3 years) 07/16/20 13,07/11/2012,07/20/2011,2009,08/10/2008,07/08/2007 Influenza, IIV4 08/14/2023,,08/30/2021,2019,07/07/2019,07/28/2018,08/08/2016,1 Pneumococcal Conj 20-valent (Prevnar 20) 03/13/2022 Pneumococcal Poly,23-Valent (Pneumovax) 01/07/2009 Td (Age >=7 Years) 05/17/2018 Tdap 02/09/2006 Zoster (Shingrix-RZV, recombinant) 09/19/2018, Family History Medical History Relation Name Comments Heart Disease Brother 1 Joey Higuera had NC at 40's Heart Disease Brother 2 Carter Cardiac Irregu larity Hypertension Brother 2 Carter Diabetes Father Kalen Heart Disease Father Kalen Hypertension Father Kalen from heart attack, had x 2 heart surgeries Obesity Father Kalen Stroke Father Kalen Heart Disease Mother Yarelis Jasso Hypertension Mother Yarelis Jasso from heart attack at 53 yo, Relation Name Status Comments Brother 1 Joey Higuera (Age 40) NC Brother 2 Carter Alive Dwarf; [place] h[place]. Father Kaeln (Age 67) Mother Yarelis Jasso (Age 53) bedri dden: in her sleep Social History Tobacco Use Types Packs/Day Years Used Date Smoking Tobacco: Never Smokeless Tobacco: Never Tobacco Cessation:Counseling Given: No Alcohol Use Standard Drinks/Week Comments Yes 0 (1 standard drink = 0.6 oz pur e alcohol) on weekends about a 6 pack PHQ-2 Answer Date Recorded PHQ-2 TOTAL SCORE 0 01/11/2024 Social Connections Answer Date Recorded Do you often feel lonely or isolated from those around you? 0 01/11/2024 Financial Resource Strain Answer Date R ecorded Difficulty of Paying Living Expenses 3 01/11/2024 Difficulty of Paying Living Expenses Not on file 01/11/2024 Food Insecurity Answer Date Recorded Do you worry your food will run out before you are able to buy more? 1 01/11/2024 Transportation Needs Answer Date Record ed Does lack of transportation keep you from medica l appointments? 1 01/11/2024 Does lack of transportation keep you from work, meetings or getting things that you need? 1 01/11/2024 Housing Stability Answer Date Recorded What is your housing situation today? 1 01/11/2024 Interpersonal Safety Answer Date Record ed Are you being hit, kicked, p ushed or yelled at (see row info)? No 04/11/2024 Interpersonal Safety Abuse 12 - 18 Not on file 04/11/2024 Interpersonal Safety Ambulatory Vulnerability No t on file 04/11/2024 Utilities Answer Date Recorded Do you have trouble paying f or utilities (for example, heat, electricity, water, phone)? 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 Not on file Not on file Not on file Obstetrics History Last Filed Vital Signs Vital Sign Reading Time Taken Comments Blood Pressure 157/91 11/28/2024 11:26 AM ASSISTANT FOOD SERVICE DIRECTOR Pulse 81 11/28/2024 11:26 AM ASSISTANT FOOD SERVICE DIRECTOR Temperature 36.5 C (97.7 F) 05/13/2024 1:16 PM CDT Respiratory Rate 16 05/13/2024 1:16 PM CDT Oxygen Saturation 98% 11/28/2024 11: 25 AM ASSISTANT FOOD SERVICE DIRECTOR Inhaled Oxygen Concentration - - Weight 130.1 kg (286 lb 12.8 oz) 2024 11:25 AM ASSISTANT FOOD SERVICE DIRECTOR Height 167.6 cm (5' 6) 08/05/2024 3:43 PM CDT Body Mass Index 46.29 08/05/2024 3:43 PM CDT Plan of Treatment Upcoming Encounters Date Type Department Care Team (Late st Contact Info) Description 01/12/2025 7:00 AM CDT Office Visit [facility] [address] [place] [address] Davian Vargas MD [address] [place] [address] 01/20/2025 8:40 AM CDT Office Visit [place] [address] [address] Aurelia Nobles, DANNIE [address] [place] [address] Health Maintenance Due Date Last Done Comments RSV vaccine for adults or (1 - Risk 60-74 years 1-dose series) 2021 COVID-19 vaccine series (2023- season) 2024 08/14/2023, 03/13/2022, 08/30/2021, Additional history exists Influenza Vaccine (#1) 2024 , 06/08/2022, 08/30/2021, Additional history exists Depression screening for age 12+ 01/10/2025 01/11/2024, 11/21/2022, 11/20/2022, Additional history exists Colonoscopy through age 75 04/25/202504/25, 04/25/2022, 04/25/2022, Additional history exists BMI (ht and wt on same day) for age 18+ 08/05/2025 08/05/2024, 01/22/2024, 01/11/2024, Additional history exists Tetanus booster 05/17/2028 05/17/2018, 02/09/2006 Lipids for age 45-75 01/10/2029 01/11/2024, 10/26/2022, 09/27/2021, Additional history exists Tdap Completed 02/09/2006 Hepatitis C screening for ag e 18-79 Completed 05/17/2018 Zoster (shingles) series for age 50+ Completed 09/19/2018, 05/17/2018 Pneumococcal series for age 50+ Completed , 01/07/2009 HIV for age 15-65 Completed 10/26/2022 Medical Devices Implanted Type Area Pizza Delivery Driver Device Identifier Shelf Expiration Date Model / Serial / Lot [id number] one Matrix 1cc [place] Dbf Putty Dbm Implanted:Qty: 1 on 05/21/2023 by Arlene Mccall MBChB at [facility] N/A: Spine Medtronic Spine/Ortho 01/25/2025 [id number] / [id number] / Sarah Spacer Tc 6 Deg Lg 9mm Implanted:Qty: 1 on 05/21/2023 by Arlene Mccall MBChB at [facility] N/A: Spine 11/30/2027 [id number] / / [id number] Description:SARAH SPACER TC 6 DEG LG 9MM Screw Cerv Ant 3.5x17mm Zevo Variable Slf Drilling - [id number] Implanted:Qty: 4 on 05/21/2023 by Arlene Mccall MBChB at [facility] N/A: Spine Medtronic Spine/Ortho [id number] / / Plate Zevo 21mm 1 Lvl Implanted:Qty: 1 on 05/21/2023 by Arlene Mccall MBChB at [facility] N/A: Spine [id number] / / Description:PLATE ZEVO 21MM 1 LVL Procedures Procedure Name Priority Date/Time Associated Diagnosis Comments US LOWER EXTREMITY SOFT TISSUE LEFT Routine 12/05/2024 1:39 PM ASSISTANT FOOD SERVICE DIRECTOR Acute pain of left knee Popliteal cyst, left US NECK OR HEAD SOFT TISSUE Routine 12/05/2024 11:24 AM ASSISTANT FOOD SERVICE DIRECTOR Soft tissue swelling of back XR KNEE 3 VIEWS LEFT Routine 11/19/2024 8:18 AM ASSISTANT FOOD SERVICE DIRECTOR Acute pain of left knee LIPID PANEL Routine 01/11/2024 3:15 PM CDT Mixed hyperlipidemia LC HIV-1/O/2, 4TH GENERATION Routine 10/26/2022 11:20 AM ASSISTANT FOOD SERVICE DIRECTOR Screening for HIV (human immunodeficiency virus) COLONOSCOPY SCREENING Routine 04/25/2022 7:35 AM CDT History of colon polyps ANTI HCV Routine 05/17/2018 9:04 AM CDT Need for hepatitis C screening test from Last 3 Months or Most Recently Relevant to Health Maintenance Results * US LOWER EXTREMITY SOFT TISSUE LEFT (12/05/2024 1:39 PM ASSISTANT FOOD SERVICE DIRECTOR) Anatomical Region Laterality Modality ARM R Ultrasound 12/05/2024 2:03 PM ASSISTANT FOOD SERVICE DIRECTOR Narrative 12/05/2024 2:03 PM ASSISTANT FOOD SERVICE DIRECTOR For Patients: As a result of the Cures Act, medical imaging exams and procedure reports are released immediately into your electronic medical record. You may view this report before your referring provider. If you have questions, please contact your health care provider. Indication: Acute pain left knee Technique: Grayscale and color Doppler ultrasound of the left knee soft tissues performed posteriorly. Comparison: Plain films 11/19/2024 Findings: Popliteal cyst is present measuring 3.5 x 1.0 x 1.0 cm. No abnormal vascularity. No shadowing mass or adenopathy. Impression: 3.5 cm popliteal cyst. Dictated by Shai Short MD @ 12/05/2024 2:03:57 PM (Electronically Signed) Procedure Note Shai Shotr MD - 12/05/2024 For Patients: As a result of the Cures Act, medical imagingexams and procedure reports are released immediately into your electronicmedical record. You may view this report before your referring provider.If you have questions, please contact your health care provider. Indication: Acute pain left knee Technique: Grayscale and color Doppler ultrasound of the left knee soft tissuesperformed posteriorly. Comparison: Plain films 11/19/2024 Findings: Popliteal cyst is present measuring 3.5 x 1.0 x 1.0 cm. No abnormalvascularity. No shadowing mass or adenopathy. Impression: 3.5 cm popliteal cyst. Dictated by Shai Short MD @ 12/05/2024 2:03:57 PM (Electronically Signed) us Guy Han MD US Final Res ult * US NECK OR HEAD SOFT TISSUE (12/05/2024 11:24 AM ASSISTANT FOOD SERVICE DIRECTOR) Anatomical Region Laterality Modality NECK Ultrasound 12/05/2024 1:19 PM ASSISTANT FOOD SERVICE DIRECTOR Narrative 12/05/2024 1:19 PM ASSISTANT FOOD SERVICE DIRECTOR For Patients: As a result of the Cures Act, medical imaging exams and procedure reports are released immediately into your electronic medical record. You may view this report before your referring provider. If you have questions, please contact your health care provider. Indication: Soft tissue swelling of the back Technique: Grayscale and color Doppler ultrasound of the right posterior neck soft tissues performed. Comparison: None Findings: Nonvascular isoechoic structure within the subcutaneous fat measures 4.5 x 1.0 x 3.9 cm. No distal acoustic shadowing. No fluid collection or adenopathy. Impression: Subcutaneous lipoma measuring 4.5 x 1.0 x 3.9 cm. Dictated by Shai Short MD @ 12/05/2024 1:19:45 PM (Electronically Signed) Procedure Note Shai Short MD - 12/05/2024 For Patients: As a result of the s Act, medical imagingexams and procedure reports are released immediately into your electronicmedical record. You may view this report before your referring provider.If you have questions, please contact your health care provider. Indication: Soft tissue swelling of the back Technique: Grayscale and color Doppler ultrasound of the right posterior neck softtissues performed. Comparison: None Findings: Nonvascular isoechoic structure within the subcutaneous fat measures 4.5 x1.0 x 3.9 cm. No distal acoustic shadowing. No fluid collection oradenopathy. Impression: Subcutaneous lipoma measuring 4.5 x 1.0 x 3.9 cm. Dictated by Shai Short MD @ 12/05/2024 1:19:45 PM (Electronically Signed) us Davian Vargas MD US Final Resu lt * XR KNEE 3 VIEWS LEFT (11/19/2024 8:18 AM ASSISTANT FOOD SERVICE DIRECTOR) Anatomical Region Laterality Modality KNEES, KNEE L Computed Radiogr aphy 11/19/2024 11:3 7 AM ASSISTANT FOOD SERVICE DIRECTOR Narrative 11/19/2024 11:37 AM ASSISTANT FOOD SERVICE DIRECTOR For Patients: As a result of the s , medical imaging exams and procedure reports are released immediately into your electronic medical record. You may view this report before your referring provider. If you have questions, please contact your health care provider. INDICATION: Acute left knee pain. TECHNIQUE: Three views of the left knee. FINDINGS: Moderate left knee joint effusion. No acute fracture. Minimal degenerative change. Dictated by Stanley Reyes MD @ 11/19/2024 11:37:22 AM (Electronically Signed) Procedure Note Stanley Reyes MD - 11/19/2024 For Patients: As a result of the 21st Century Cures Act, medical imagingexams and procedure reports are released immediately into your electronicmedical record. You may view this report before your referring provider.If you have questions, please contact your health care provider. INDICATION: Acute left knee pain. TECHNIQUE: Three views of the left knee. FINDINGS: Moderate left knee joint effusion. No acute fracture. Minimal degenerativechange. Dictated by Stanley Reyes MD @ 11/19/2024 11:37:22 AM (Electronically Signed) us Ace Stubbs MD GENERAL IMAGING Final Result * LIPID PANEL (01/11/2024 3:15 PM CDT) CHOLESTEROL,TOTAL 171 100 - 199 mg/dL 01/11/2024 10:17 PM CDT [facility] Comment: Cholesterol, Total Reference Ranges Desirable <200 mg/dL Borderline 200-239 mg/dL High >=240 mg/dL TRIGLYCERIDES 140 <150 mg/dL 01/11/2024 10:17 PM CDT [facility] HDL CHOLESTEROL 42 >40 mg/dL 10:17 PM CDT [facility] NON-HDL CHOLESTEROL 129 <145 mg/dl 01/11/2024 10:17 PM CDT [facility] CHOL/HDL RATIO 4.07 <4.50 01/11/2024 10:17 PM CDT [facility] LDL CHOLESTEROL 101 <=130 mg/dL 01/11/2024 10:17 PM CDT [facility] VLDL CHOLESTEROL 28 <=30 mg/dL 01/11/2024 10:17 PM CDT [facility] PROVIDER ORDERED STATUS RANDOM 01/11/2024 10:17 PM CDT [facility] Blood BLOOD SPECIMEN / Unknown Venipuncture / Unknown 01/11/2024 3:15 PM CDT 01/11/2024 3:15 PM CDT us Davian Vargas MD CHEMISTRY Final Resu lt [facility] [address] [place] [address], [place] * LC HIV-1/O/2, 4TH GENERATION (10/26/2022 11:20 AM ASSISTANT FOOD SERVICE DIRECTOR) [facility] HIV Scr 4th Gen Non Reactive Non Reactive 10/28/2022 1:10 PM ASSISTANT FOOD SERVICE DIRECTOR [facility] ([facility]) Comment: HIV Negative HIV-1/HIV-2 antibodies and HIV-1 p24 antigen were NOT detected. There is no laboratory evidence of HIV infection. Blood BLOOD SPECIMEN / Unknown Venipuncture / Unknown 10/26/2022 11:20 AM ASSISTANT FOOD SERVICE DIRECTOR 10/26/2022 11:22 AM ASSISTANT FOOD SERVICE DIRECTOR Narrative [facility] ([facility]) - 10/28/2022 1:10 PM ASSISTANT FOOD SERVICE DIRECTOR Performed at: [address] [place] [address] [employer] [place], [place] [id number] Content Specialist: Christiano Bowers MD, Phone: [phone] us Davian Vargas MD LABORATORY Final Resu lt [facility] ([facility]) [facility] [place] [address], * COLONOSCOPY (04/25/2022 7:45 AM CDT) 04/25/2022 7:45 AM CDT Narrative Transcriptions Shaan Quintero MD - 04/25/2022 8:59 AM CDT Patient Name: Flaco Taylor Procedure Date: 04/25/2022 Gender: Male Date of : 1960 Admit Type: Outpatient Procedure: Colonoscopy Proceduralist: Shaan Quintero MD , Roxie Woodall, RN(Nurse) Referring MD: Davian Vargas Indications/Pre-Op Diagnosis: [...] clip was successfully placed (MR conditional). Clip taping supervisor: Dokogeo. There was no bleeding during, or atthe [...] retrieved. Clip (MR conditional) was placed. Clip taping supervisor: Dokogeo. - Moderate diverticulosis in the sigmoid colon [...] 7:45 AM Procedure Code(s): --- Professional --- 92414, Colonoscopy, flexible; with removalof tumor(s), polyp(s), or other lesion(s) bysnare technique Diagnosis Code(s): --- Professional --- Z86.010, Personal history of colonicpolyps D12.2, Benign neoplasm of ascending colon D12.5, Benign neoplasm of sigmoid colon K57.30, Diverticulosis of large intestine without perforation or abscess withoutbleeding Q43.8, Other specified congenitalmalformations of intestine CPT copyright 2020 [employer]. All rights reserved. The codes documented in this report are preliminary and upon mechanical artist reviewmay be revised to meet current compliance requirements. Scope In: 8:07:16 AM Scope Withdrawal Time 0 hours 30 minutes 44 seconds Scope Out: 8:49:20 AM us Shaan Quintero MD PROCEDURE ORD Final Res ult * ANTI HCV [16063.2] (05/17/2018 9:04 AM CDT) HEPATITIS C ANTIBODY Non-React ezio Non-React ezio 05/17/2018 1:58 PM CDT [facility] Comment:Antibodies to HCV no t detected; does not exclude the possibility of exposure to HCV. Blood BLOOD SPECIMEN / Unknown Venipuncture / Unknown 05/17/2018 9:04 AM CDT 05/17/2018 9:04 AM CDT us Davian Vargas MD SEND OUTS Final Resu lt [facility] [address] [place] [address], [place] from Last 3 Months or Most Recently Relevant to Health Maintenance [place] [address] WORKERS [employer] * Guarantor: [employer] Account Type Relation to Patient Date of Phone Billing Address [employer] [address] [place] [address] Advance Directives * Full Code (Latest Code Status on File) Date Activated Date Inactivated Comments 05/13/2024 11:44 AM 05/13/2024 8:38 PM Question Answer Comments Code Status Discussion: Reviewed Preferences * Full Code Date Activated Date Inactivated Comments 04/11/2024 12:35 PM 04/11/2024 4:19 PM Question Answer Comments Code Status Discussion: Reviewed Preferences * Full Code Date Activated Date Inactivated Comments 05/21/2023 11:52 [...] Answer Comments Code Status Discussion: Reviewed Preferences Care Teams Master Ocean Relationship Specialty Start Date End Date Davian Vargas MD [address] [place] [address] PCP - General Family Practice 07/16/13
--- OUTSIDE RECORDS SUMMARY | 2024-12-26 14:52 | XMS_ITS | Clinical Summary ---
Author Organization [facility] Address [address] [place] [address] Care Team Providers Care Field Staff Name Role Phone Elsewhere, Pcp Primary Care Provider Unavailabl e Source Comments Patient records contain information from all sites at [facility]. For routine questions regarding patient records, call [phone] during business hours, M-F 8:00 AM - 5:00 PM Central Time. Record requests for emergency care only can be directed to [phone] at any time.[facility] Allergies Active Allergy Reactions Criticality Noted Date Comments Apollo Cespedes (Reselect Reaction) 01/21/2007 rash Medications * This document contains information received from the source organization and may not represent a complete record from that organization. rosuvastatin (CRESTOR) 5 mg tablet Take 5 mg by mouth. 10/26/2022 Active naproxen (NAPROSYN) 500 mg tablet Take 500 mg by mouth every 12 (twelve) hours as needed. 01/02/2023 Active metoprolol tartrate (LOPRESSOR) 25 mg tablet Take 25 mg by mouth 2 (two) times a day. 03/06/2023 Active lisinopriL (PRINIVIL,ZESTRI L) 30 mg tablet Take 15 mg by mouth. 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 Gender Identity Not on file Sexual Orientation Not on file Last Filed Vital Signs Vital Sign Reading Time Taken Comments Blood Pressure 167/110 05/04/2023 3:00 PM CDT Pulse 85 05/04/2023 3:05 PM CDT Temperature 36.6 C (97.9 F) 05/04/2023 3:00 PM CDT Respiratory Rate 22 05/04/2023 3:05 PM CDT Oxygen Saturation 96% 05/04/2023 3:05 PM CDT Inhaled Oxygen Concentration - - Weight 135 kg (297 lb 9.9 oz) 05/04/2023 1:51 PM CDT Height - - Body Mass Index - - Plan of Treatment Health Maintenance Due Date Last Done Comments CT Colonography 1961 Cologuard 1961 FIT 1961 HIV Screening 1960 Hepatitis C Screening 1961 Tobacco Cessation counseling 1961 COVID-19 Vaccine ( season) 2024 08/14/2023, 03/13/2022, 08/30/2021, Additional history exists Influenza Vaccine (#1) 2024 , 06/08/2022, 08/30/2021, Additional history exists Depression Screening (Annual PHQ-2) 10/08/2024 Creatinine Level (Kidney Function Test) 01/10/2025 01/11/2024, 05/22/2023, 12/18/2022, Additional history exists Sodium Level 01/10/2025 01/11/2024, 10/08, 09/27/2021, Additional history exists Potassium Level 04/11/2025 04/11/2024, 04/0 02/2024, 01/02/2023, Additional history exists Fasting Glucose for Diabetes Screening 01/10/2027 01/11/2024, 10/26/2022, 09/27/2021, Additional history exists DTaP,Tdap,and Td Vaccines (3 - Td or Tdap) 05/17/2028 05/17/2018, 02/09/2006 Lipid (Cholesterol) Screening 01/10/2029 01/11/2024, 10/26/2022, 09/27/2021, Additional history exists Colonoscopy 04/25/2032 04/25/2022 Colorectal Cancer Screening 04/25/2032 Zoster Vaccines Completed 09/19/2018, 05/17/2018 Pneumococcal vaccine (50+ years) Completed 03/13/2022, 01/07/2009 IPV Vaccines Aged Out No longer eligi ble based on patient's age to complete this topic Insurance [facility] [facility] ANA LUISA PÉREZ [id number] Care Teams Field Staff Relationship Specialty Start Date End Date Elsewhere, Pcp PCP - General Internal Medicine 05/04/23
[2024-12-26 14:53] VITALS: BP 148/84; PULSE 89; RESP 18; TEMP 36; O2SAT 99; BMI 44.4
--- NOTE | 2024-12-26 15:04 | CRLHL7_ITS ---
For Patients: As a result of the Century Cures Act, medical imaging exams and procedure reports are released immediately into your electronic medical record. You may view this report before your referring provider. If you have questions, please contact your health care provider. INDICATION: Trauma. TECHNIQUE: CT head without contrast. COMPARISON: None. FINDINGS: Cerebral parenchyma: No evidence of acute territorial infarct. No acute intraparenchymal hemorrhage. No significant mass effect/midline shift. Normal rosales-white matter differentiation. Extra-axial spaces: No extra-axial collection or hemorrhage. Ventricles: Unremarkable. Calvarium: Intact. Visualized paranasal sinuses/mastoid air cells: Mild mucosal thickening of the bilateral maxillary and sphenoid sinuses. Posterior fossa: Slightly low-lying cerebellar tonsils. Mildly prominent cisterna magna. Visualized orbits: No acute abnormality. IMPRESSION: No acute intracranial abnormality. Specifically, no evidence of acute intracranial hemorrhage. Please note that all CT scans at this facility use dose modulation, iterative reconstruction, and/or weight-based dosing when appropriate to reduce radiation dose to as low as reasonably achievable. Dictated by Jessica Hyde MD @ 12/26/2024 3:50:09 PM (Electronically Signed)
[2024-12-26 15:32] VITALS: BP 149/82
--- NOTE | 2024-12-26 15:33 | ED.GENADULT ---
HPI - General Adult General Chief complaint: Fall/Minor Trauma Stated complaint: Hit head at work Time Seen by Provider: 12/26/24 14:55 Source: patient Mode of arrival: ambulatory Limitations: no limitations History of Present Illness HPI narrative: 64-year-old male, anticoagulated, presents today after falling and hitting his head. 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 He was shook up when the event happened. He denies headache, neck pain or back pain. He denies changes in his vision, nausea or vomiting. He denies changes in his speech or any focal neurologic deficits. The event occurred approximately 30 minutes ago. He denies any other injury. He did not lose consciousness. He was able to get up unassisted. TTA was called upon arrival. Related Data Home Medications ?Medication ?Instructions ?Recorded ?Confirmed albuterol sulfate 90 mcg/actuation 1 - 2 puff inhalation Q4H PRN 02/19/24 12/26/24 aerosol inhaler (Ventolin HFA) wheezing apixaban 5 mg tablet (Eliquis) 5 mg PO BID 02/19/24 12/26/24 diltiazem HCl 120 mg 120 mg PO DAILY 02/19/24 12/26/24 capsule,extended release 24 hr lisinopril 30 mg tablet 30 mg PO DAILY 02/19/24 12/26/24 rosuvastatin 10 mg tablet 10 mg PO QPM 02/19/24 12/26/24 furosemide 20 mg tablet 20 mg PO DAILY 12/26/24 12/26/24 Allergies Allergy/AdvReac Type Severity Reaction Status Date / Time codiene Allergy Uncoded 02/19/24 15:30 Review of Systems Status of ROS: Reports: 10 or more systems reviewed and unremarkable except as noted in History and below PFSH PFS Social History Smoking Status: Never smoker Do you use any of these nicotine containing products: None How often do you have a drink containing alcohol: 2-3 times a week How many standard drinks containing alcohol do you have on a typical day: 5 or 6 How often do you have six or more drinks on one occasion: Never AUDIT-C Alcohol total score: 5 Non-prescribed substance use: denies use service: No Exam Narrative: Exam Narrative: Well-nourished well-developed patient in no acute distress. Alert and oriented x3. Answers questions appropriately. Mood and affect are appropriate. Thoughts are goal oriented and rational. No tangential or magical thinking noted. Patient speaks in full sentences without needing to catch their breath. GCS is 15. Patient is speaking and breathing without difficulty. There is no obvious significant bleeding noted. HEENT: Normocephalic. Pupils are equally round reactive to light. Extraocular muscles are intact. Conjunctivae are moist without any icterus noted. Moist mucous membranes. Posterior pharynx is normal. No trauma noted to the inside of the mouth. Neck is soft without any lymphadenopathy or thyromegaly. No masses are appreciated. Patient has an large superficial abrasion over the occipital scalp. No crepitus. Minimal tenderness. No step-offs or obvious deformities. Cardiovascular: Heart is regular rate and rhythm. Lungs: Clear to auscultation bilaterally. Patient takes deep breaths without any discomfort. Patient has no tenderness to palpation of the anterior, lateral posterior chest wall. Abdomen: Soft and nontender nondistended with normal bowel sounds. Extremities: Bilateral lower extremities are without edema. Skin: Well perfused. Back: Normal appearance. Patient has no tenderness to palpation at the cervical, thoracic or lumbar spine. Patient has full range of motion at the neck with flexion, extension, side way bending and rotation without pain. Gait is normal. Const: Vital Signs, click to edit/add: Vital Signs - 24 hr 12/26/24 14:53 Temperature 96.8 F L Pulse Rate [Right Pulse Oximeter] 89 Respiratory Rate 18 Blood Pressure [Ri ght Upper Arm] 148/84 H Pulse Oximetry 99 Oxygen Delivery Me thod Room Air Course Course ED Course: Given that he is anticoagulated and he has evidence of trauma to the head we did go ahead and proceed with a head CT which did not show any acute findings. Vital Signs Vital signs: Initial Vital Signs Temperature 96.8 F L 12/26/24 14:53 Temperature Source Temporal Artery Scan 12/26/24 14:53 Pulse Rate 89 12/26/24 14:53 Pulse Rhythm Regular 12/26/24 14:53 Respiratory Rate 18 12/26/24 14:53 Blood Pressure 148/84 H 12/26/24 14:53 Blood Pressure Mean 105 12/26/24 14:53 Blood Pressure Position Sitting 12/26/24 14:53 Pulse Oximetry 99 12/26/24 14:53 Oxygen Delivery Method Room Air 12/26/24 14:53 Vital Signs Temperature 96.8 F L 12/26/24 14:53 Pulse Rate 89 12/26/24 14:53 Respiratory Rate 18 12/26/24 14:53 Blood Pressure 148/84 H 12/26/24 14:53 Pulse Oximetry 99 12/26/24 14:53 Oxygen Delivery Method Room Air 12/26/24 14:53 Temperature 96.8 F L 12/26/24 14:53 Pulse Rate 89 12/26/24 14:53 Respiratory Rate 18 12/26/24 14:53 Blood Pressure 148/84 H 12/26/24 14:53 Pulse Oximetry 99 12/26/24 14:53 Oxygen Delivery Method Room Air 12/26/24 14:53 Medical Decision Making MDM Narrative Medical decision making narrative: 64-year-old male status post fall from standing height, abrasion to the back of the head. Imaging unremarkable. Abrasion was cleaned in the ER today. Imaging Data CT scan - head: Attestation: I have reviewed the pertinent imaging results. Radiologist's impression: CT head without contrast. COMPARISON: None. FINDINGS: Cerebral parenchyma: No evidence of acute territorial infarct. No acute intraparenchymal hemorrhage. No significant mass effect/midline shift. Normal rosales-white matter differentiation. Extra-axial spaces: No extra-axial collection or hemorrhage. Ventricles: Unremarkable. Calvarium: Intact. Visualized paranasal sinuses/mastoid air cells: Mild mucosal thickening of the bilateral maxillary and sphenoid sinuses. Posterior fossa: Slightly low-lying cerebellar tonsils. Mildly prominent cisterna magna. Visualized orbits: No acute abnormality. IMPRESSION: No acute intracranial abnormality. Specifically, no evidence of acute intracranial hemorrhage. Discharge Plan Discharge Clinical Impression: Fall, Closed head injury, Abrasion of scalp Patient Disposition: Home, Self-Care Condition: Stable Instructions: Head Injury (ED) Additional Instructions: Return to the emergency department if you develop difficulty speaking, lethargy, vomiting, or confusion. Okay to take Tylenol as needed for headache. You may wake up in the morning and find that you have pain across the shoulders and upper back, this is normal. Okay to use heat as needed. Do not apply heat directly to the skin or use for more than 20 minutes at a time. Prescriptions: No Action furosemide 20 mg tablet 20 mg PO DAILY lisinopril 30 mg tablet 30 mg PO DAILY diltiazem HCl 120 mg capsule,extended release 24hr 120 mg PO DAILY albuterol sulfate [Ventolin HFA] 90 mcg/actuation HFA aerosol inhaler 1 - 2 puff INHALATION Q4H PRN (Reason: wheezing) rosuvastatin 10 mg tablet 10 mg PO QPM Eliquis 5 mg tablet 5 mg PO BID Follow Up/Referrals: Davian Vargas MD [Primary Care Provider] - Stand Alone Forms: [employer] Info Instructions
[2024-12-26 15:45] VITALS: PULSE 88; O2SAT 97
--- OUTSIDE RECORDS SUMMARY | 2024-12-26 15:53 | XMS_ITS | Data Portability ---
Author Organization [place] [facility] Address [address] [place] [address] Care Team Providers Care Animal Chiropractor Name Role Phone PATOGUDELIA CHEEMA Primary Care Provider Assessment No assessment recorded. Plan of Treatment Reminders Order Date Submit Date Provider Last Modified By Organization Details Last Modified Time Details Appointments None recorded. Lab urinalysis, dipstick 2022 023 sonia [facility], [address], [place], [address], 3 15:03:49 Referral None recorded. Procedures None recorded. Surgeries extra corporeal shock wave lithotripsy (SURG) 2022 023 [email or web address] Not available 3 09:53:17 Imaging XR, kidney + ureter + bladder 2022 023 [email or web address] [facility] , [address] [place], [address], 4 08:43:45 Medication Orders None recorded. Patient TargetsNo targets recorded. Patient InstructionsNo instructions recorded. Reason for Referral None Reported. Results Created Date Observation Date Name Description Value Unit Range Abnormal Flag Note LastModifiedBy Organization Detail LastModifiedTime 12/22/19 23 12/21/2022 urina lysis , dipst ick pH-Status 5.5 Not Available [facility] [address], [place], [address], 12/21/2022 15:03:22 12/22/19 23 12/21/2022 urina lysis , dipst ick Blood-Status Small Not Available [facility] [address], [place], [address], 12/21/2022 15:03:22 12/20/19 23 11/21/2022 CT, urogr am No observ ation record ed. [email or web address] Not Available 2022 15:22:51 12/22/19 23 12/21/2022 XR, kidne y + urete r + bladd er EXAM: XR, KIDNEY + URETER + BLADDE R LOCATI ON: [facility] DATE/T VERN: 2022, 2:30 PM INDICA TION: [...] Guy bartlett MD on 2022 at 16:28 [facility] [address], [place], [address], 12/25/2022 18:04:54 02/09/20 23 02/07/2023 XR, kidne y + urete r + bladd er No observ ation record ed. [email or web address] [facility] [address] [place], [address], 02/08/2023 09:04:47 Result Notes None recorded. Problems Name Problem SNOMED Code Status Onset Date Resolution Date Notes Provider Name and Address Organization Details Recorded Time Microscopic hematuria 457480963 Active 2022 Abhinav Hammond MD [address] [address], [place], [address], [facility] 16:07:08 Kidney stone 63047228 Active 2022 Abhinav Hammond MD [address],[facility] [address], [place], [address], [facility] 16:09:47 Problem Notes None recorded. Procedures Surgical History None recorded. Imaging Results Imaging Date Name Status LastModified by Organiz ation Details LastModified Time 11/21/2022 CT, urogram completed [email or web address] Information n ot available 12/19/2022 15:22:51 12/21/2022 XR, kidney + ureter + bladder completed [facility] [address], [place], [address], 12/25/2022 18:04:54 02/07/2023 XR, kidney + ureter + bladder completed [address] [facility] [address] [facility] [place] [place], [address], 02/08/2023 09:04:47 Procedure Notes None recorded. Medical [...] Address Organization Details Last Updated DateTime 12/21/2022 839818.79 g 42.8 kg/m2 175.26 cm Alicja Jamie [facility] 12/21/2022 14:57:25 Date Recorded Body height Body mass index (BMI) Body weight Provider Name and Address Organization Details Last Updated DateTime 02/07/2023 175.26 cm 42.8 kg/m2 979090.79 g iGna Childress [facility] 02/07/2023 10:47:27 Social History Question Answer Notes LastModified by Organizat ion Details LastModified Time Tobacco Smoking Status Never Smoker Steffambreen bailey [facility] 12/21/2022 14:58:28 What Is Your Level Of Alcohol Consumption? Moderate Information not available 12/21/2022 What Is Your Level Of Caffeine Consumption? None Information not available 02/07/2023 What Was The Date Of Your Most Recent Tobacco Screening? 02/07/2023 kneubert Information not available 02/07/2023 Sex: Unknown Functional Status None recorded. Mental Status None recorded. Family History Nothing Reported. Medical History Condition Response Other N High Blood Pressure Y Kidney Stones Y Lung Disease N Depression N GERD/Acid Reflux N Sexually Transmitted Infection N Cancer N High Cholesterol Y Diabetes N Bleeding Disorder N Heart Disease N Immunizations Vaccine Type Date Status Note Provider Nam e and Address Organization Details Recorded Time zoster recombinant 8 completed Maeve bailey [facility] 08/29/2023 11:08:13 zoster recombinant 8 completed Maeve bailey [facility] 08/29/2023 11:08:13 COVID-19, mRNA, LNP-S, PF, 100 mcg/0.5mL dose or 50 mcg/0.25mL dose 1 completed Maeve bailey [facility] 08/29/2023 11:08:13 COVID-19, mRNA, LNP-S, PF, 100 mcg/0.5mL dose or 50 mcg/0.25mL dose [facility] 11:08:13 COVID-19, mRNA, LNP-S, PF, 100 mcg/0.5mL dose or 50 mcg/0.25mL dose 1 [facility] 11:08:13 Pneumococcal conjugate PCV20, polysaccharide [id number] conjugate, adjuvant, PF 2 [facility] 11:08:13 COVID-19, mRNA, LNP-S, PF, 30 mcg/0.3 mL dose, yves-sucrose 2 [facility] 11:08:13 Tdap 6 [facility] 11:08:13 Influenza, split virus, trivalent, preservative 2 [facility] 11:08:13 Influenza, split virus, trivalent, preservative 3 [facility] 11:08:13 Influenza, split virus, trivalent, preservative 0 [facility] 11:08:13 Influenza, split virus, trivalent, PF 1 [facility] 11:08:13 Td (adult), 2 Lf tetanus toxoid, preservative free, adsorbed 8 [facility] 11:08:13 Influenza, split virus, quadrivalent, PF 2 [facility] 11:08:13 Influenza, split virus, quadrivalent, PF 9 completed Maeve bailey [facility] 08/29/2023 11:08:13 Influenza, split virus, quadrivalent, PF 0 completed Maeve bailey, [facility] 08/29/2023 11:08:13 Influenza, split virus, quadrivalent, PF 8 [facility] 11:08:13 Influenza, split virus, quadrivalent, PF 4 [facility]23 11:08:13 Influenza, split virus, quadrivalent, PF 6 [facility]23 11:08:13 Influenza, split virus, quadrivalent, PF [facility] 11:08:13 Past Encounters Encounter ID Performer Location Encounter Start Date Encounter Closed Date Diagnosis/Indication Diagnosis SNOMED-CT Code Diagnosis ICD10 Code Diagnosis Note [id number] Abhinav Hammond MD [facility] [address] [place] [address] 12/21/2022 14:15:16 12/25/2022 09:35:12 Kidney stone 09868426 N20.0 - 7 mm left lower pole renal stone. The stone to skin distance on the CT scan is about 13.7 cm. The stone is visible on KUB x-ray today.- We reviewed the CT scan images in detail and discussed options of conservati ve management versus surgical interventi on. Given the size of the stone, surgical interventi on is certainly an option. I discussed the options of ureterosco py with laser lithotrips y and possible stent placement vs. extracorpo real shock wave lithotrips y (ESWL) in detail. The stone is visible on plain x-ray and located in position suitable for ESWL. We discussed the possible risks including but not limited to infection, bleeding, injury or scarring, and the possible need for a staged procedure or possible ureteral stent. The patient wishes to proceed with scheduling ESWL at [place]. Microscopic hematuria 19 3686023 R31.29 - He will require cystoscopy for evaluation of his microscopi c hematuria. He declines office cystoscopy and prefers to have this done under anesthesia at the time of ESWL. 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; recommende d CT and cysto every 4-5 years if persists or new symptoms Health Concerns Section Related Observation LastModified by Organization Detai ls LastModified Time None Recorded Concern Status LastModified by Organization Details LastModified Time None Recorded Advance Directives Directive None Recorded Payers Encounter Date Sequence Insurance Name Policy Number Policy Tovar Covered Member ID Tovar Member ID Guarantor Name 12/21/2022 1 [facility] [id number] Flaco Taylor [id number] Flaco Taylor 02/07/2023 1 [facility] ([facility]) [id number] Flaco Taylor [id number] Flaco Taylor Notes Date Note Type Note Provider Name and Address Organization Details Recorded Time 12/21/2022 text/html New patient refe rred for microscopic hematuria and kidney stone. 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 He has no hematuria or any bothersome urinary symptoms. He does take Eliquis for atrial fibrillation. I reviewed the CT urogram images and report from [facility] dated 11/21/2022. This shows nonobstructing 7 mm left lower pole renal stone. No masses, hydronephrosis or filling defects. Abhinav Hammond MD [address], [place], [address], [facility] 12/21/2022 16:11:19 02/07/2023 text/html 12/21/22: New pat ient referred for microscopic hematuria and kidney stone. 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 He has no hematuria or any bothersome urinary symptoms. He does take Eliquis for atrial fibrillation. I reviewed the CT urogram images and report from [facility] dated 11/21/2022. This shows nonobstructing 7 mm left lower pole renal stone. No masses, hydronephrosis or filling defects. 02/07/23: He underwent diagnostic cystoscopy and left ESWL on 01/19/2023. Bladder was clear of any pathology. KUB today shows excellent fragmentation of what was a 7 mm left lower pole renal stone, with no residual fragments visible today. Abhinav Hammond MD [address], [place], [address], [facility] 02/07/2023 12:08:01
--- OUTSIDE RECORDS SUMMARY | 2024-12-26 15:53 | XMS_ITS | Clinical Summary ---
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 For routine questions regarding patient records, call [phone] during business hours, M-F 8:00 AM - 5:00 PM Central Time. 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
--- OUTSIDE RECORDS SUMMARY | 2024-12-26 15:53 | XMS_ITS | Clinical Summary ---
Author Organization [facility] Address [address] [place] [id number] Care Team Providers Care Labor Representative Name Role Phone Davian Vargas MD Primary Care Provider [phone] Allergies Active Allergy Reactions Criticality Noted Date [...] 09/20/2010 Overview (12/26/2010): Converted after Mayra 12/2010 [facility]. Obesity, unspecified 09/08/2010 Unspecified essential hypertension 01/20/2009 [...] 10/26/2022 Overview (07/22/2012): Referred to CDE. 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) use of anticoagulants 09/20/2010 07/20/2011 Overview [...] Type Department Care Team Description 12/26/[address] [place] [address] Davian Vargas MD Refill Request (Rosuvastatin) 12/05/2024 10:30 AM CHIEF LEARNING OFFICER Ancillary Procedure [address] [place] [address] 12/05/2024 9:45 AM CHIEF LEARNING OFFICER Ancillary Procedure [address] [address] 12/05/2024 Travel 11/30/2024 Travel 11/28/2024 11:20 AM CHIEF LEARNING OFFICER Office Visit [address] [place] [address] Davian Vargas MD Shoulder Pain/problem (Right shoulder pain has been on going/No injury); Knee Pain/problem (Fluid in knee has an ultra sound scheduled); Medication Management 11/28/2024 Travel 11/25/2024 7:00 AM CHIEF LEARNING OFFICER Office Visit [address] [place] [address] Guy Han MD Musculoskeletal Problem (Consultation for LEFT Knee Pain x 2 months) 11/24/2024 Travel 11/20/[address] [address] Charlie Dennison MD Consult (With Dr Dennison) 11/19/2024 8:15 AM CHIEF LEARNING OFFICER Ancillary Procedure [address] [address] 11/19/2024 7:30 AM CHIEF LEARNING OFFICER Office Visit [address] [address] Ace Stubbs MD Knee Pain/problem (Swollen Left Knee. X 2 Weeks. 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 Not on file Not on file Not on file Obstetrics History Last Filed Vital Signs Vital Sign Reading Time Taken Comments Blood Pressure 157/91 11/28/2024 11:26 AM CHIEF LEARNING OFFICER Pulse 81 11/28/2024 11:26 AM CHIEF LEARNING OFFICER Temperature 36.5 C (97.7 F) 05/13/2024 1:16 PM CDT Respiratory Rate 16 05/13/2024 1:16 PM CDT Oxygen Saturation 98% 11/28/2024 11: 25 AM CHIEF LEARNING OFFICER Inhaled Oxygen Concentration - - Weight 130.1 kg (286 lb 12.8 oz) 2024 11:25 AM CHIEF LEARNING OFFICER Height 167.6 cm (5' 6) 08/05/2024 3:43 PM CDT Body Mass Index 46.29 08/05/2024 3:43 PM CDT Plan of Treatment Upcoming Encounters Date Type Department Care Team (Late st Contact Info) Description 01/12/2025 7:00 AM CDT Office Visit [facility] [address] [place] [address] Davian Vargas MD [address] [place] [address] 01/20/2025 8:40 AM CDT Office Visit [place] [address] [address] Aurelia Nobles, DANNIE [address] [place] [address] Health Maintenance Due Date Last Done Comments [...] Completed 10/26/2022 Medical Devices Implanted Type Area Direct Support Professional Device Identifier Shelf Expiration Date Model / Serial / Lot [id number] one Matrix 1cc Seneca Dbf Putty Dbm Implanted:Qty: 1 on 05/21/2023 by Arlene Mccall MBChB at [facility] N/A: Spine Med[employer]onic Spine/Ortho 01/25/2025 [id number] / [id number] / Sarah Spacer Tc 6 Deg Lg 9mm Implanted:Qty: 1 on 05/21/2023 by Arlene Mccall MBChB at [facility] N/A: Spine 11/30/2027 [id number] / / [id number] Description:SARAH SPACER TC 6 DEG LG 9MM Screw Cerv Ant 3.5x17mm Zevo Variable Slf Drilling - [id number] Implanted:Qty: 4 on 05/21/2023 by Arlene Mccall MBChB at [facility] N/A: Spine Medtronic Spine/Ortho [id number] / / Plate Zevo 21mm 1 Lvl Implanted:Qty: 1 on 05/21/2023 by Arlene Mccall MBChB at [facility] N/A: Spine [id number] / / Description:PLATE ZEVO 21MM 1 LVL Procedures Procedure Name Priority Date/Time Associated Diagnosis Comments US LOWER EXTREMITY SOFT TISSUE LEFT Routine 12/05/2024 1:39 PM CHIEF LEARNING OFFICER Acute pain of left knee Popliteal cyst, left US NECK OR HEAD SOFT TISSUE Routine 12/05/2024 11:24 AM CHIEF LEARNING OFFICER Soft tissue swelling of back XR KNEE 3 VIEWS LEFT Routine 11/19/2024 8:18 AM CHIEF LEARNING OFFICER Acute pain of left knee LIPID PANEL Routine 01/11/2024 3:15 PM CDT Mixed hyperlipidemia LC HIV-1/O/2, 4TH GENERATION Routine 10/26/2022 11:20 AM CHIEF LEARNING OFFICER Screening for HIV (human immunodeficiency virus) COLONOSCOPY SCREENING Routine 04/25/2022 7:35 AM CDT History of colon polyps ANTI HCV Routine 05/17/2018 9:04 AM CDT Need for hepatitis C screening test from Last 3 Months or Most Recently Relevant to Health Maintenance Results * US LOWER EXTREMITY SOFT TISSUE LEFT (12/05/2024 1:39 PM CHIEF LEARNING OFFICER) Anatomical Region Laterality Modality ARM R Ultrasound 12/05/2024 2:03 PM CHIEF LEARNING OFFICER Narrative 12/05/2024 2:03 PM CHIEF LEARNING OFFICER For Patients: As a result of the [...] 2:03:57 PM (Electronically Signed) Procedure Note Shai Short [...] OR HEAD SOFT TISSUE (12/05/2024 11:24 AM CHIEF LEARNING OFFICER) Anatomical Region Laterality Modality NECK Ultrasound 12/05/2024 1:19 PM CHIEF LEARNING OFFICER Narrative 12/05/2024 1:19 PM CHIEF LEARNING OFFICER For Patients: As a result of the [...] KNEE 3 VIEWS LEFT (11/19/2024 8:18 AM CHIEF LEARNING OFFICER) Anatomical Region Laterality Modality KNEES, KNEE L Computed Radiogr aphy 11/19/2024 11:3 7 AM CHIEF LEARNING OFFICER Narrative 11/19/2024 11:37 AM CHIEF LEARNING OFFICER For Patients: As a result of the [...] - 199 mg/dL 01/11/2024 10:[address] [facility] [employer] [facility] Comment: Cholesterol, Total Reference Ranges Desirable <200 mg/dL Borderline 200-239 mg/dL High >=240 mg/dL TRIGLYCERIDES 140 <150 mg/dL 01/11/2024 10:[address] [facility] [employer] LABORATORY-[facility] HDL CHOLESTEROL 42 >40 mg/dL 10:17 PM CDT [facility] NON-HDL CHOLESTEROL 129 <145 mg/dl 01/11/2024 10:17 PM CDT [facility] CHOL/HDL RATIO 4.07 <4.50 01/11/2024 10:17 PM CDT [facility] LDL CHOLESTEROL 101 <=130 mg/dL 01/11/2024 10:17 PM CDT [facility] VLDL CHOLESTEROL 28 <=30 mg/dL 01/11/2024 10:17 PM CDT [facility] PROVIDER ORDERED STATUS RANDOM 01/11/2024 10:[address] [facility] [employer] [facility] Blood BLOOD SPECIMEN / Unknown Venipuncture / Unknown 01/11/2024 3:15 PM CDT 01/11/2024 3:15 PM CDT us Davian Vargas MD CHEMISTRY Final Resu lt [facility] [address] [place] [address], [place] * LC HIV-1/O/2, 4TH GENERATION (10/26/2022 11:20 AM CHIEF LEARNING OFFICER) [facility] HIV Scr 4th Gen Non Reactive Non Reactive 10/28/2022 1:10 PM CHIEF LEARNING OFFICER [facility] Comment: HIV Negative HIV-1/HIV-2 antibodies and HIV-1 p24 antigen were NOT detected. There is no laboratory evidence of HIV infection. Blood BLOOD SPECIMEN / Unknown Venipuncture / Unknown 10/26/2022 11:20 AM CHIEF LEARNING OFFICER 10/26/2022 11:22 AM CHIEF LEARNING OFFICER Narrative [facility] - 10/28/2022 1:10 PM CHIEF LEARNING OFFICER Performed at: [address] [place] [address] [employer] [place] [id number] Pharmacy Operations Coordinator: Christiano Bowers MD, Phone: [phone] us Davian Vargas MD LABORATORY Final Resu lt [facility] [place] [address], * COLONOSCOPY (04/25/2022 7:45 AM CDT) 04/25/2022 [...] clip was successfully placed (MR conditional). Clip psychologist industrial organizational: [employer]. There was no bleeding during, or atthe [...] retrieved. Clip (MR conditional) was placed. Clip psychologist industrial organizational: [employer]. - Moderate diverticulosis in the sigmoid colon [...] 7:45 AM Procedure Code(s): --- Professional --- 50065, Colonoscopy, flexible; with removalof tumor(s), polyp(s), or other lesion(s) bysnare technique Diagnosis Code(s): --- Professional --- Z86.010, Personal history of colonicpolyps D12.2, Benign neoplasm of ascending colon D12.5, Benign neoplasm of sigmoid colon K57.30, Diverticulosis of large intestine without perforation or abscess withoutbleeding Q43.8, Other specified congenitalmalformations of intestine CPT copyright 2020 [employer]. All rights reserved. The codes documented in this report are preliminary and upon distributing clerk reviewmay be revised to meet current compliance requirements. Scope In: 8:07:16 AM Scope Withdrawal Time 0 hours 30 minutes 44 seconds Scope Out: 8:49:20 AM us Shaan Quintero MD PROCEDURE ORD Final Res ult * ANTI HCV [82433.2] (05/17/2018 9:04 AM CDT) HEPATITIS C ANTIBODY Non-React ezio Non-React ezio 05/17/2018 1:58 PM CDT [facility] Comment:Antibodies to HCV no t detected; does not exclude the possibility of exposure to HCV. Blood BLOOD SPECIMEN / Unknown Venipuncture / Unknown 05/17/2018 9:04 AM CDT 05/17/2018 9:04 AM CDT us Davian Vargas MD SEND OUTS Final Resu lt [facility] [address] [place] [address], [place] from Last 3 Months or Most Recently Relevant to Health Maintenance Insurance [place] [address] [employer] * Guarantor: [employer] Account Type Relation to Patient Date of Phone Billing Address [employer] [address] [place] [address] Advance Directives * Full Code (Latest Code [...] Code Status Discussion: Reviewed Preferences Care Teams Labor Representative Relationship Specialty Start Date End Date Davian Vargas MD [address] [place] [address] PCP - General Family Practice 07/16/13
[2024-12-26 15:55] VITALS: BP 144/106; PULSE 96; RESP 20; O2SAT 97
[2024-12-26 16:00] VITALS: PULSE 92; O2SAT 97
== END 2024-12-26 16:11 | disposition home or self-care (01) ==
LOC: ED 15:51
PROVIDERS: Emergency Provider Family Medicine; PCP Surgery
DX: S00.01XA Abrasion of scalp, initial encounter (principal); W22.8XXA Striking against or struck by other objects, initial encounter; Y99.0 Civilian activity done for income or pay
CPT/HCPCS: 70450; 99283; 99284